=== PATIENT | male | born 1950 | race Caucasian/White ===

== ENCOUNTER → 2018-08-29 13:37 | Outpatient (CLI) | payer MEDICARE, SELFPAY ==
[2018-08-29 17:14] LABS: ALB/GLOB Ratio 1.1 RATIO (0.9-2.4); AST(SGOT) 35 U/L (15-37); Alanine Aminotransfer ALT/SGPT 41 U/L (16-61); Albumin, Serum 3.9 g/dL (3.2-5.0); Alkaline Phosphatase 64 U/L (45-117); Anion Gap 7 (5-15); BUN 25 mg/dL (7-18); BUN/Creat Ratio 22.9 RATIO (10-20); Calcium,Total 8.8 mg/dL (8.5-10.1); Chloride 109 mmol/L (98-107); Cholesterol 139 mg/dL (200); Creatinine, Serum 1.09 mg/dL (0.70-1.30); EST Glomerular Filtration Rate 72 mL/min (>60); Est Glom Filt Rate - Afr Amer 87 mL/min (>60); Globulin 3.5 g/dL (2.2-4.2); Glucose 70 mg/dL (74-106); High Density Lipoprotein 54 mg/dL; Protein, Total 7.4 g/dL (6.4-8.2); Sodium Level 144 mmol/L (136-145); Thyroid Stim Hormone (TSH) 2.57 uIU/mL (0.358-3.74); Triglycerides 48 mg/dL; Very Low Density Lipoprotein 10 mg/dL (5-40)
== END ==
PROVIDERS: Family Provider Family Medicine; PCP Family Medicine; Referring Provider Family Medicine; Visit Provider Family Medicine
DX: E11.9 Type 2 diabetes mellitus without complications (principal)
CPT/HCPCS: 36415; 80053; 80061; 84443

== ENCOUNTER 2019-04-15 05:53 | Day surgery (SDC) | payer OTHER, SELFPAY ==
[2019-02-02 12:46] VITALS: BMI 27.9
[2019-04-15] VITALS (7 sets, daily range): BP systolic 88–112; BP diastolic 51–83; PULSE 66–74; RESP 16–18; TEMP 36.8–37.1; O2SAT 94–99; BMI 27.4
[2019-04-15 06:51] LABS: Bedside Glucose 137 mg/dL (70-110)
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
--- NOTE | 2019-04-15 07:54 | OP.ENDO_ITS ---
04/15/2019 Jairon Caruso [address] [place] [address] Re : Colonoscopy procedure for Brent Kelly Dear Dr. Caruso This procedure was performed on Monday, April 15, 2019. My impressions and recommendations are as follows: Impressions : - One 4 mm polyp from 40 to 70 cm proximal to the anus. Unsuccessful polyp resection. - The examination was otherwise normal. - No specimens collected. Recommendations : - Discharge patient to home. - Resume previous diet. - Continue present medications. - Repeat colonoscopy (date not yet determined) for retreatment. - Return to my office in 1 week. My findings are described in the full procedure note, which is enclosed. If I can be of further assistance, please feel free to contact me at Doctor phone number(s): , Fax: [phone], Work: . Sincerely, MD Wilbert Sexton MD 04/15/2019 7:53:41 AM This report has been signed electronically.
--- NOTE | 2019-04-15 07:56 | RAD_ITS ---
STUDY: X-RAY - ABDOMEN/PELVIS REASON FOR EXAM: Male, 69 years old. Post colonoscopy. TECHNIQUE: AP supine and upright views of the abdomen and pelvis. COMPARISON: None. FINDINGS: Normal visualized lung bases. There is an unremarkable bowel gas pattern. There is no demonstrated free abdominal air. A tissue clip marker is seen in the left hemipelvis most likely within the rectosigmoid colon. Normal soft tissue structures. There are diffuse degenerative changes of the visualized lumbar spine. RAD/Abd Inc Decub and/or Erect IMPRESSION: Post colonoscopy. A tissue clip marker is seen in the left hemipelvis. Electronically Signed: Balaji Daigle, at 13:11 EDT , Service support ,
== END 2019-04-15 08:43 | disposition home or self-care (01) ==
LOC: EN 05:53 → AC 05:53
PROVIDERS: Family Provider Family Medicine; PCP Family Medicine; Referring Provider Family Medicine; Visit Provider Surgery
PROC: 0DJD8ZZ Inspection of Lower Intestinal Tract, Via Natural or Artificial Opening Endoscopic (ICD-10-PCS; CPT 45378; principal; 2019-04-15 06:55)
DX: Z12.11 Encounter for screening for malignant neoplasm of colon (principal); D12.6 Benign neoplasm of colon, unspecified; I10 Essential (primary) hypertension; K21.9 Gastro-esophageal reflux disease without esophagitis; K58.9 Irritable bowel syndrome, unspecified; G47.30 Sleep apnea, unspecified; G25.81 Restless legs syndrome; E11.9 Type 2 diabetes mellitus without complications; Z87.442 Personal history of urinary calculi
CPT/HCPCS: 45378; 74019; 82962; J7120; J1610

== ENCOUNTER → 2019-06-10 09:24 | Outpatient (CLI) | payer OTHER, SELFPAY ==
[2019-04-22 09:20] VITALS: BMI 27.4
[2019-06-10 10:16] LABS: ALB/GLOB Ratio 1.1 RATIO (0.9-2.4); AST(SGOT) 22 U/L (15-37); Alanine Aminotransfer ALT/SGPT 32 U/L (16-61); Albumin, Serum 3.8 g/dL (3.2-5.0); Alkaline Phosphatase 77 U/L (45-117); Anion Gap 6 (5-15); BUN 31 mg/dL (7-18); BUN/Creat Ratio 25.8 RATIO (10-20); Calcium,Total 8.8 mg/dL (8.5-10.1); Chloride 110 mmol/L (98-107); Cholesterol 214 mg/dL (200); EST Glomerular Filtration Rate 64 mL/min (>60); Est Glom Filt Rate - Afr Amer 78 mL/min (>60); Globulin 3.6 g/dL (2.2-4.2); Glucose 210 mg/dL (74-106); High Density Lipoprotein 50 mg/dL; Iron 104 ug/dL (65-175); PSA,Total - Annual Screen 0.37 ng/mL (0.00-4.00); Potassium 4.2 mmol/L (3.5-5.1); Protein, Total 7.4 g/dL (6.4-8.2); Sodium Level 144 mmol/L (136-145); Triglycerides 105 mg/dL; Very Low Density Lipoprotein 21 mg/dL (5-40)
[2019-06-10 10:20] LABS: Vitamin B12 284 pg/mL (211-911)
== END ==
PROVIDERS: Family Provider Family Medicine; PCP Family Medicine; Referring Provider Family Medicine; Visit Provider Family Medicine
DX: R53.83 Other fatigue (principal); E11.9 Type 2 diabetes mellitus without complications; E53.8 Deficiency of other specified B group vitamins; Z12.5 Encounter for screening for malignant neoplasm of prostate
CPT/HCPCS: 36415; 80053; 80061; 82306; 82607; 83540; 84153; 84403; G0103

== ENCOUNTER → 2019-12-31 14:54 | Outpatient (CLI) | payer OTHER, SELFPAY ==
[2019-12-31 14:47] VITALS: BMI 27.4
--- NOTE | 2019-12-31 14:55 | RAD_ITS ---
STUDY: X-RAY - LEFT HAND REASON FOR EXAM: Hand pain. TECHNIQUE: 3 view(s) of the hand. COMPARISON: None. FINDINGS: Normal radiocarpal articulation. Normal distal radioulnar joint. Normal visualized carpal bones. Normal carpal articulations There is moderate joint space narrowing of the carpometacarpal articulation of the thumb. Normal second through fifth carpometacarpal joints. Normal metacarpi. Normal metacarpophalangeal joint of the thumb. Normal interphalangeal joint of the thumb. Normal proximal and distal phalanges of the thumb. Normal metacarpophalangeal joints of the second through fifth fingers. There is mild space narrowing of the distal interphalangeal joints of the second and third fingers. Normal phalanges of the second through fifth fingers. The soft tissue structures are unremarkable. RAD/Hand Min 3 Views IMPRESSION: Arthrosis of the first carpometacarpal joint and second and third distal interphalangeal joints. Electronically Signed: Cirilo Veronica MD at 15:23 EST Tel , Service support ,
--- NOTE | 2019-12-31 14:55 | RAD_ITS ---
STUDY: X-RAY - LEFT ELBOW REASON FOR EXAM: Male, 69 years old. bilateral elbow pain TECHNIQUE: 3 view(s) of the elbow. COMPARISON: None. FINDINGS: Normal visualized humerus, radius and ulna. There is degenerative arthrosis of the radiocapitellar and ulnotrochlear articulations. The soft tissue structures are unremarkable. 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 Electronically Signed: Maldonado Richardson MD (Brooks) at 14:44 EST , Service support ,
--- NOTE | 2019-12-31 14:55 | RAD_ITS ---
STUDY: X-RAY - RIGHT HAND REASON FOR EXAM: Male, 69 years old. Hand pain TECHNIQUE: 3 view(s) of the hand. COMPARISON: None. FINDINGS: Normal radiocarpal articulation. Normal distal radioulnar joint. Normal visualized carpal bones. Normal carpal articulations Normal carpometacarpal articulation of the thumb. Normal second through fifth carpometacarpal joints. Normal metacarpi. Normal metacarpophalangeal joint of the thumb. Normal interphalangeal joint of the thumb. Normal proximal and distal phalanges of the thumb. Normal metacarpophalangeal joints of the second through fifth fingers. Normal proximal and distal interphalangeal joints of the second through fifth fingers. Normal phalanges of the second through fifth fingers. The soft tissue structures are unremarkable. RAD/Hand Min 3 Views IMPRESSION: Normal x-ray examination of the hand. Electronically Signed: Balaji Daigle, at 15:16 EST , Service support ,
--- NOTE | 2019-12-31 14:55 | RAD_ITS ---
STUDY: X-RAY - RIGHT ELBOW REASON FOR EXAM: Male, 69 years old. Bilateral elbow pain TECHNIQUE: 3 view(s) of the elbow. COMPARISON: Comparison is made with prior examination dated May 31, 2010. FINDINGS: Normal visualized humerus, radius and ulna. There is degenerative arthrosis of the radiocapitellar and ulnotrochlear articulations. The soft tissue structures are unremarkable. RAD/Elbow min 3 Views IMPRESSION: Arthrosis of the elbow, as described above. Electronically Signed: Balaji Daigle, at 15:16 EST , Service support ,
== END ==
PROVIDERS: PCP Family Medicine; Referring Provider Orthopaedic Surgery; Visit Provider Orthopaedic Surgery
DX: M79.641 Pain in right hand (principal); M79.642 Pain in left hand; M25.521 Pain in right elbow; M25.522 Pain in left elbow
CPT/HCPCS: 73080; 73130

== ENCOUNTER 2020-02-01 17:00 | Outpatient (RCR) | payer OTHER, SELFPAY ==
[2019-12-31 14:47] VITALS: BMI 27.4
--- NOTE | 2020-01-12 14:19 | HP.OTEVAL ---
Patient's Visit Information RICKI MOREL is a 69 year old M, referred to Occupational Therapy by Dr. Lleo Cody DO, with a diagnosis of B elbow tendonitis, B MF trigger finger, Diabetic neuropathy. Date of Evaluation: 01/11/20 Occupational Therapist: GWYN Marquez/Nenita, CHT - Subjective Subjective: This 69 year old male was seen for OT eval with dx of bilateral elbow tendonitis, bilateral MF trigger fingers and diabetic neropathy. pt states right elbow pain started about a year ago- states he has used tennise elbow brace in past but didn't feel it was helpful. pt states pain is limiting his work and daily tasks. pt states he developed tingling/numbness in bilateral hands- pt states tingling is constant. pt would like to know what he can do to decrease pain and increase use of his UE for ADls and IADLS. 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 Goal:: pt will demo the ability to form a composite fist with no signs of B MF triggering by d/c - Rehabilitation General Assessment: pt demo with positive symptoms of bilateral trigger fingers, and elbow pain- this limits pts with ADLS and IADLs. Pt would benefit from skilled OT services 2x week for 4 weeks to decrease pain, ed. on work ergo. joint protection, eccentric ex. to return pt to PLOF. Today pt given information on medial and lateral tendonitis, trigger finger and joint protection brandee. therapist will also look at work ergo. pt agree to POC. Rehabilitation Potential: Good - Anticipated Interventions Anticipated Interventions: A/AAROM/PROM, Strengthening, Triggerpoint Release, Modalities, Orthoses, Joint Protection/Energy Conservation, Ergonomic Education, Education re Diagnosis - Visit Plan Frequency: 1-2x /Week Duration: 4 Weeks TEXT: Thank you for the opportunity to evaluate your patient. For Medicare and Medicare HMO plans, please review the plan of care and approve it. It will need to be FAXED BACK to us at [phone] for Medicare purposes. Please let me know if there are questions or concerns regarding this plan of care. Physician Signature: Date:
--- NOTE | 2020-07-13 14:14 | HP.OTDCSUM_ITS ---
It has been my pleasure to treat RICKI MOREL under orders from Dr. Lelo Cody, , for the diagnosis of B elbow tendonitis, B MF trigger finger, Diabetic neuropathy for a total of 6 visit(s). Please see the following information for a summary of their discharge status. 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 Goal:: pt will demo the ability to form a composite fist with no signs of B MF triggering by d/c Plan: pt to rosalina Cardona let her know he was seen 6 visits with no change in trigger fingers - elbows better- may need cortisone shot If there are questions or concerns regarding this patient's occupational therapy, please fell free to call me at [phone]. Thank you for the referral of this patient. Sincerely, Renee Alejo, OTR/L, CHT
--- NOTE | 2020-07-13 14:17 | HP.OT.NRP ---
RICKI MOREL was seen in my office for initial evaluation on 01/11/20. The following Plan of Care was established for this patient: Plan: pt to rosalina Cardona let her know he was seen 6 visits with no change in trigger fingers - elbows better- may need cortisone shot Anticipated Interventions: A/AAROM/PROM, Strengthening, Triggerpoint Release, Modalities, Orthoses, Joint Protection/Energy Conservation, Ergonomic Education, Education re Diagnosis This patient was last seen in our office 02/01/20. Pertinent comments regarding their Occupational therapy will appear below: PT was seen for 6 OT visits with little improvement- Pt was advised to return to for further assessment- pt has not returnd as this time and due to time lapse in care pt d/c. At this point I will be discontinuing this patient from occupational therapy. I would be happy to see this patient again in the future if found appropriate by the physician. Thank you! Renee Alejo, OTR/L, CHT
== END 2020-02-01 19:00 | disposition home or self-care (01) ==
LOC: OT 17:00
PROVIDERS: PCP Family Medicine; Referring Provider Orthopaedic Surgery; Visit Provider Orthopaedic Surgery
DX: M77.9 Enthesopathy, unspecified (principal); M65.332 Trigger finger, left middle finger; M65.331 Trigger finger, right middle finger; E11.40 Type 2 diabetes mellitus with diabetic neuropathy, unspecified
CPT/HCPCS: 97035; 97110; 97140; 97166; 97760

== ENCOUNTER → 2020-04-19 14:33 | Outpatient (CLI) | payer OTHER, SELFPAY ==
[2019-12-31 14:47] VITALS: BMI 27.4
--- NOTE | 2020-04-19 14:34 | RAD_ITS ---
STUDY: X-RAY - CERVICAL SPINE REASON FOR EXAM: Male, 70 years old. NECK PAIN TECHNIQUE: 4 view(s) of the cervical spine were obtained including flexion-extension views. COMPARISON: None FINDINGS: Normal anterior atlantoaxial articulation. Normal odontoid process. There is straightening of the normal cervical lordosis. There is multi-level endplate spondylosis. There is multi-level degenerative disc disease with multilevel disc space narrowing. Facet joint osteoarthritis. No abnormal movement occurs during flexion and extension maneuvers. Focal calcification of the posterior nuchal ligament. RAD/Cerv Spine 4 or 5 Views IMPRESSION: Loss of the normal cervical lordosis. Multilevel spondylosis and disc space narrowing. Electronically Signed: Balaji Daigle, at 8:43 EDT , Service support ,
== END ==
PROVIDERS: PCP Family Medicine; Referring Provider Orthopaedic Surgery; Visit Provider Orthopaedic Surgery
DX: M99.01 Segmental and somatic dysfunction of cervical region (principal); M54.2 Cervicalgia
CPT/HCPCS: 72050

== ENCOUNTER 2020-05-17 08:08 | Emergency (ER) | payer OTHER, SELFPAY ==
[2020-04-19 14:54] VITALS: BMI 27.4
[2020-05-17 08:09] VITALS: BP 134/94; PULSE 80; RESP 16; TEMP 36.3; O2SAT 98; BMI 28.7
--- NOTE | 2020-05-17 08:46 | RAD_ITS ---
STUDY: X-RAY - RIGHT KNEE REASON FOR EXAM: Male, 70 years old. Knee pain X1 month, worsens with motion. TECHNIQUE: 4 view(s) of the knee. COMPARISON: None. FINDINGS: Normal visualized distal femur. Normal visualized proximal tibia and fibula. Normal proximal tibiofibular articulation. There is severe degenerative arthrosis of the medial femorotibial compartment with severe joint space narrowing. Normal lateral femorotibial compartment. There is moderate degenerative arthrosis of the patellofemoral articulation. Small joint effusion. RAD/Knee 4 or More Views IMPRESSION: Degenerative arthrosis. Small joint effusion Electronically Signed: Balaji Daigle, at 9:20 EDT , Service support ,
--- NOTE | 2020-05-17 08:51 | ED.DCSUM_ITS ---
History of Present Illness Chief Complaint: Lower Extremity Injury Informant: Patient Onset: Month(s) - 1 Narrative: On and off symptoms right knee for the past month. States felt a lump behind right side of knee. Denies trauma. Yesterday increasing pain and felt uns table. Reports he felt a snap. Able to ambulate. Pain now on top of the knee. No paresthesias. Left knee total arthroscopic by Dr. Mcrae in the past. States he saw his PCP a week ago and evaluated felt he was stable at that time however pain is new from yesterday. Past Medical History - Allergies and Home Meds Allergies/Adverse Reactions: Allergies No Known Allergies Allergy (Verified 05/17/20 08:11) Primary Care Physician: Jairon Caruso MD [Primary Care Provider] - Past Medical History: - - Diabetes, hypertension Smoking Status: Former smoker Review of Systems General: Denies: Chills, Fever, Sweats Eyes: Denies: Visual changes - bilaterally, Diplopia ENT: Denies: Rhinorrhea, Sore throat Cardiovascular: Denies: Chest pain, Palpitations Respiratory: Denies: Dyspnea, Cough, Dyspnea on exertion Gastrointestinal: Denies: Abdominal pain, Nausea, Vomiting, Diarrhea, Melena, Hematochezia Genitourinary: Denies: Dysuria, Hematuria, Frequency Musculoskeletal: Reports: Arthralgias. Denies: Back pain, Extremity Pain Skin: Denies: Rash, Wounds Neurological: Denies: Headache, Weakness, Numbness Physical Exam Vital Signs/Narrative: Vital Signs Temp Pulse Resp BP Pulse Ox 05/17/20 08:09 97.3 F L 80 16 134/94 H 98 General: Well nourished, Well developed, No Acute Distress Head: Normocephalic, Atraumatic Eyes: Perrl, EOMI ENT: Moist mucous membranes, No rhinorrhea Neck: Supple, Nontender Cardiovascular: Regular rate, Regular rhythm, No murmurs Respiratory: No distress, CTA bilaterally, Chest nontender Abdomen: Soft, Nontender, Nondistended, Normal bowel sounds Back: Nontender, Normal Inspection Extremities: No edema, - - Right lower extremity: Negative logroll. Knee extensor mechanism intact. Minimal tenderness suprapatellar. Negative varus and valgus. Negative Nirmal's. No calf or medial thigh tenderness. Skin intact. Neurovascular intact. Skin: Normal color, No rash Neurological: Alert, Oriented x3, Cranial nerves II-XII grossly intact, Normal Strength, Normal Sensation Psychological: Normal affect, Normal Mood Diagnostic/Tx/Re-eval 4 view right knee reviewed by myself shows no fracture or dislocation. Significant degenerative changes especially at the medial compartment of the knee. - Medical Decision Making Patient declined any medications. Discussed with patient with his reported hi story of feeling a snap, will be no indication for emergent MRI of the knee today. He does see a specialist. He did want an x-ray for evaluation of the bones which was obtained noting significant arthritis in the medial compartment. Reported there is plan for total knee for this side in the past with his surgeon. He will wear knee brace, he will use Tylenol or Motrin as needed. He will follow-up as an outpatient. All questions were answered. ED Disposition - Plan for ED Patient: Disposition: Home or Assisted Living Diagnosis: Internal derangement of right knee Instructions: ED Knee Pain UKO, Osteoarthritis: Common Sites Referrals: Jairon Caruso MD [Primary Care Provider] - Rc Mcrae DO [STAFF PHYSICIAN] - 5-7 Days
== END 2020-05-17 09:34 | disposition home or self-care (01) ==
PROVIDERS: Emergency Provider Emergency Medicine; PCP Family Medicine
DX: M23.91 Unspecified internal derangement of right knee (principal); E11.9 Type 2 diabetes mellitus without complications; I10 Essential (primary) hypertension; Z87.891 Personal history of nicotine dependence
CPT/HCPCS: 73564; 99282

== ENCOUNTER → 2020-05-24 07:43 | Outpatient (CLI) | payer OTHER, SELFPAY ==
[2020-05-17 08:09] VITALS: BMI 28.7
--- NOTE | 2020-05-24 07:48 | CT_ITS ---
STUDY: CT SCAN LOWER EXTREMITY RIGHT REASON FOR EXAM: Male, 70 years old. RIGHT KNEE PAIN- JB protocol RADIATION DOSAGE (If Supplied By Facility): CTDIvol = ( 17.91 ) mGy, DLP = ( 1062.41 ) mGycm. Individualized dose optimization techniques were used for this CT.? TECHNIQUE: Multiple axial tomographic images of the right lower extremity were obtained. Coronal and sagittal reconstruction was obtained as well. COMPARISON: Comparison is made with prior radiograph of the right knee dated May 17, 2020. FINDINGS: There is evidence of an acetabular spur. Mild degree of joint space narrowing along the inferior medial aspect of the right hip joint. Marked degree of the joint space narrowing and degenerative changes involving the medial compartment of the knee joint. There are tiny subchondral geodes in the medial tibial plateau. Focal degenerative spurring is seen along the anterior aspect of the medial femoral condyle. There is evidence of a small joint effusion. No significant narrowing of the patellofemoral joint is seen. Imaging of the ankle shows evidence of prior avulsion fracture of the medial malleolus. The ankle mortise is intact. CT/Extremity Lower without Contra IMPRESSION: Marked degree of joint space narrowing and arthritis of the medial compartment of the knee joint as described. Small joint effusion. Electronically Signed: Balaji Daigle, at 13:18 EDT , Service support ,
[2020-05-24 09:00] LABS: Erythrocyte Sedimentation Rate 67 mm/hr (0-20)
[2020-05-24 09:02] LABS: Absolute Lymphocyte Count 2.24 X10^3/uL (0.83-4.51); Absolute Neutrophil Count 6.8 X10^3/uL (2.0-7.7); Basophil# 0.05 X10^3/uL; Basophil% 0.5 % (0-1); Eosinophil# 0.19 X10^3/uL; Eosinophils% 1.8 % (0-5); Hematocrit 39.9 % (40-54); Hemoglobin 12.9 g/dL (13.0-16.5); Lymphocyte # 2.24 X10^3/ul (4.0); Lymphocyte % 21.7 % (19-41); Mean Corp Hgb Conc 32.3 g/dL (32-36); Mean Corpuscular Hgb 28.7 pg (27.0-32.0); Mean Corpuscular Volume 88.9 fL (80-94); Mean Platelet Vol. 9.5 fl (6.2-12.0); Monocyte# 0.97 X10^3/uL; Monocyte% 9.4 % (0-10); NRBC Flagged by Analyzer 0 % (0-5); Neutrophil # 6.78 X10^3/uL (2.7-7.7); Neutrophil % 65.5 % (47-70); Platelet Count 356 K/mm3 (150-450); RBC Distribution Width CV 13.5 % (11.6-14.6); RBC Distribution Width SD 44.1 fl (35.1-43.9); Red Blood Count 4.49 M/mm3 (4.6-6.2); White Blood Count 10.3 K/mm3 (4.4-11.0)
[2020-05-24 09:07] LABS: Vitamin B12 597 pg/mL (211-911); Vitamin D,25 Hydroxy 42.8 ng/mL
[2020-05-24 09:13] LABS: Cholesterol 160 mg/dL (200); High Density Lipoprotein 38 mg/dL; Thyroid Stim Hormone (TSH) 3.45 uIU/mL (0.358-3.74); Triglycerides 140 mg/dL; Very Low Density Lipoprotein 28 mg/dL (5-40)
== END ==
PROVIDERS: PCP Family Medicine; Referring Provider Orthopaedic Surgery; Visit Provider Orthopaedic Surgery
DX: M17.11 Unilateral primary osteoarthritis, right knee (principal); E11.9 Type 2 diabetes mellitus without complications; Z12.5 Encounter for screening for malignant neoplasm of prostate; E53.8 Deficiency of other specified B group vitamins; E55.9 Vitamin D deficiency, unspecified
CPT/HCPCS: 36415; 73700; 80061; 82306; 82607; 84443; 85025; 85652; 86140

== ENCOUNTER → 2020-06-13 08:00 | Outpatient (CLI) | payer OTHER, SELFPAY ==
[2020-05-17 08:09] VITALS: BMI 28.7
--- NOTE | 2020-06-17 07:14 | EKG12_ITS ---
Test Reason : PRE-OP Blood Pressure : / mmHG Vent. Rate : 064 BPM Atrial Rate : 064 BPM P-R Int : 160 ms QRS Dur : 092 ms QT Int : 404 ms P-R-T Axes : 069 079 070 degrees QTc Int : 416 ms Normal sinus rhythm with sinus arrhythmia RSR' in V1; Non Diagnostic Confirmed by KEVIN WHITESIDE, NANCY ([id number]), commissioning editor JANELLE PADGETT ([id number]) on 06/20/2020 9:05:10 AM Referred By: Rc Mcrae Confirmed By:NANCY BROWN MD
[2020-06-17 07:19] LABS: Absolute Lymphocyte Count 3.81 X10^3/uL (0.83-4.51); Basophil# 0.06 X10^3/uL; Basophil% 0.6 % (0-1); Hematocrit 42.6 % (40-54); Hemoglobin 13.5 g/dL (13.0-16.5); Lymphocyte # 3.81 X10^3/ul (4.0); Lymphocyte % 37.4 % (19-41); Mean Corp Hgb Conc 31.7 g/dL (32-36); Mean Corpuscular Hgb 28.9 pg (27.0-32.0); Mean Corpuscular Volume 91.2 fL (80-94); Mean Platelet Vol. 9.6 fl (6.2-12.0); Monocyte# 1.04 X10^3/uL; Monocyte% 10.2 % (0-10); NRBC Flagged by Analyzer 0 % (0-5); Neutrophil # 4.96 X10^3/uL (2.7-7.7); Neutrophil % 48.7 % (47-70); Platelet Count 334 K/mm3 (150-450); RBC Distribution Width CV 14.1 % (11.6-14.6); RBC Distribution Width SD 46.9 fl (35.1-43.9); Red Blood Count 4.67 M/mm3 (4.6-6.2); White Blood Count 10.2 K/mm3 (4.4-11.0)
[2020-06-17 07:42] LABS: Anion Gap 8 (5-15); BUN 58 mg/dL (7-18); BUN/Creat Ratio 25.6 RATIO (10-20); Calcium,Total 9.2 mg/dL (8.5-10.1); Chloride 106 mmol/L (98-107); Creatinine, Serum 2.27 mg/dL (0.70-1.30); EST Glomerular Filtration Rate 31 mL/min (>60); Est Glom Filt Rate - Afr Amer 37 mL/min (>60); Glucose 111 mg/dL (74-106); Potassium 4.6 mmol/L (3.5-5.1); Sodium Level 138 mmol/L (136-145)
[2020-06-17 08:13] LABS: Hemoglobin A1c 9.6 % (3.8-5.6)
[2020-06-20 22:59] LABS: Magnesium 2.4 mg/dL (1.6-2.6)
== END ==
PROVIDERS: Anesthesiology; PCP Family Medicine; Referring Provider Orthopaedic Surgery; Visit Provider Orthopaedic Surgery
DX: Z01.810 Encounter for preprocedural cardiovascular examination (principal)
CPT/HCPCS: 36415; 80048; 83036; 83735; 85025; 87077; 87081; 87635; 93005; 94799; U0003

== ENCOUNTER → 2020-08-03 14:33 | Outpatient (CLI) | payer OTHER, SELFPAY ==
[2020-08-03 18:30] LABS: Anion Gap 4 (5-15); BUN 53 mg/dL (7-18); BUN/Creat Ratio 28.6 RATIO (10-20); Calcium,Total 8.9 mg/dL (8.5-10.1); Chloride 110 mmol/L (98-107); Creatinine, Serum 1.85 mg/dL (0.70-1.30); EST Glomerular Filtration Rate 39 mL/min (>60); Est Glom Filt Rate - Afr Amer 47 mL/min (>60); Glucose 145 mg/dL (74-106); Potassium 5.5 mmol/L (3.5-5.1); Sodium Level 141 mmol/L (136-145)
== END ==
PROVIDERS: PCP Family Medicine; Referring Provider Family Medicine; Visit Provider Family Medicine
DX: E11.9 Type 2 diabetes mellitus without complications (principal)
CPT/HCPCS: 36415; 80048

== ENCOUNTER → 2020-08-12 15:26 | Outpatient (CLI) | payer OTHER, SELFPAY ==
[2020-08-12 17:59] LABS: Anion Gap 4 (5-15); BUN 40 mg/dL (7-18); BUN/Creat Ratio 26.5 RATIO (10-20); Calcium,Total 9.2 mg/dL (8.5-10.1); Chloride 113 mmol/L (98-107); Creatinine, Serum 1.51 mg/dL (0.70-1.30); EST Glomerular Filtration Rate 49 mL/min (>60); Est Glom Filt Rate - Afr Amer 59 mL/min (>60); Glucose 101 mg/dL (74-106); Potassium 5.1 mmol/L (3.5-5.1); Sodium Level 141 mmol/L (136-145)
== END ==
PROVIDERS: PCP Family Medicine; Referring Provider Family Medicine; Visit Provider Family Medicine
DX: E11.9 Type 2 diabetes mellitus without complications (principal)
CPT/HCPCS: 36415; 80048

== ENCOUNTER → 2020-11-30 10:34 | Outpatient (CLI) | payer OTHER, SELFPAY ==
[2020-11-30 12:09] LABS: Anion Gap 2 (5-15); BUN 34 mg/dL (7-18); BUN/Creat Ratio 23.1 RATIO (10-20); Calcium,Total 9.1 mg/dL (8.5-10.1); Chloride 111 mmol/L (98-107); Creatinine, Serum 1.47 mg/dL (0.70-1.30); EST Glomerular Filtration Rate 51 mL/min (>60); Est Glom Filt Rate - Afr Amer 61 mL/min (>60); Glucose 172 mg/dL (74-106); Potassium 4.4 mmol/L (3.5-5.1); Sodium Level 142 mmol/L (136-145)
== END ==
PROVIDERS: PCP Family Medicine; Referring Provider Family Medicine; Visit Provider Family Medicine
DX: E11.9 Type 2 diabetes mellitus without complications (principal)
CPT/HCPCS: 36415; 80048; 83036

== ENCOUNTER → 2021-05-10 08:41 | Outpatient (CLI) | payer OTHER, SELFPAY ==
--- NOTE | 2021-05-10 08:57 | RAD_ITS ---
STUDY: X-RAY - LEFT HAND REASON FOR EXAM: Male, 71 years old. Hand pain. TECHNIQUE: 3 view(s) of the hand. COMPARISON: None. FINDINGS: Generalized osteopenia. Moderate arthrosis of the radiocarpal articulation. Moderate arthrosis of the radiocarpal row. Moderate to severe arthrosis of the first CMC joint. Cystic change in multiple carpal bones. The soft tissue structures are unremarkable. RAD/Hand Min 3 Views IMPRESSION: Osteopenia with osteoarthritic changes as described. Cystic change and multiple carpal bones. No acute abnormality, juxta-articular or intra-articular erosive changes or periostitis. Electronically Signed: González Joel MD at 10:06 EDT , Service support ,
--- NOTE | 2021-05-10 09:02 | RAD_ITS ---
STUDY: X-RAY - RIGHT HAND REASON FOR EXAM: Male, 71 years old. Hand pain. TECHNIQUE: 3 view(s) of the hand. COMPARISON: None. FINDINGS: Generalized osteopenia. Moderate arthrosis of the radiocarpal articulation. Moderate arthrosis of the radiocarpal row. Moderate to severe arthrosis of the first CMC joint. Cystic change in multiple carpal bones, most marked in the hamate. The soft tissue structures are unremarkable. RAD/Hand Min 3 Views IMPRESSION: Osteopenia with osteoarthritic changes as described. Cystic change and multiple carpal bones, most marked in the hamate. No acute abnormality, juxta-articular or intra-articular erosive changes or periostitis. Electronically Signed: González Joel MD at 10:07 EDT , Service support ,
== END ==
PROVIDERS: PCP Family Medicine; Referring Provider Family Medicine; Visit Provider Family Medicine
DX: M79.643 Pain in unspecified hand (principal)
CPT/HCPCS: 73130

== ENCOUNTER 2021-07-06 10:00 | Outpatient (RCR) | payer OTHER, SELFPAY | END 2021-07-11 23:59 | LOC: DC 10:00 | PROVIDERS: PCP Family Medicine; Visit Provider Family Medicine | DX: E11.9 Type 2 diabetes mellitus without complications (principal) | CPT/HCPCS: 97802; G0108 ==

== ENCOUNTER → 2021-07-11 14:39 | Outpatient (CLI) | payer OTHER, SELFPAY ==
--- NOTE | 2021-07-11 14:41 | CT_ITS ---
CT Lower Extremity W/O Contrast Injection INDICATION:71 years old male presenting with right KNEE PAIN. TECHNIQUE: Sequential axial 2.5 mm collimated images are obtained through the left hip and ankle. 0.625 mm images were obtained through the left knee. No intravenous contrast was administered. Images were reformatted in sagittal and coronal planes and forwarded for preoperative planning. COMPARISON: 05/24/2020. FINDINGS: Contiguous axial images of the left lower extremity was obtained in different collimations for preoperative planning, images demonstrate degenerative changes, no evidence of cortical irregularities or lucencies to suggest fractures, no evidence of lytic or sclerotic bone lesions are seen. No evidence of left hip dislocation, narrowing of the left hip joint space is seen. Degenerative bone changes visualized with subtle subcortical cyst formation seen, increased density along the articular surface of the acetabulum, hypertrophic bone formation visualized along the inferior lateral acetabulum. No evidence of left hip effusion is seen. Severe narrowing of the medial joint space, moderate to severe narrowing of the lateral joint space and mild to moderate narrowing of the patellofemoral joint space. Increased density visualized along the articular surfaces, articular sclerosis with subchondral lucency/cyst formation visualized. Hypertrophic bone changes with osteophyte formation visualized. No evidence of suprapatellar effusion is seen. The ankle mortise is maintained, the talar dome demonstrates no evidence of fracture cortical irregularity, subtle subchondral lucency/cysts visualized, degenerative changes visualized with no evidence of cortical irregularity or lucency to suggest a fracture. Well-corticated bones are visualized along the inferior aspect of the medial malleolus. No evidence of dislocation is seen. Inferior calcaneal spur and tendon enthesopathy visualized. No evidence of ankle joint effusion. IMPRESSION: Degenerative changes visualized, no acute osseous abnormality is seen. Electronically Signed: Sly Hu MD at 16:18 EDT Tel , Service support , CT/Extremity Lower without Contra
== END ==
PROVIDERS: PCP Family Medicine; Referring Provider Orthopaedic Surgery; Visit Provider Orthopaedic Surgery
DX: M17.11 Unilateral primary osteoarthritis, right knee (principal)
CPT/HCPCS: 73700

== ENCOUNTER 2021-07-20 13:04 | Outpatient (RCR) | payer OTHER, SELFPAY ==
[2021-07-12 00:16] VITALS: BMI 28.7
== END 2021-08-10 23:59 ==
LOC: DC 13:04
PROVIDERS: PCP Family Medicine; Visit Provider Family Medicine
DX: E11.9 Type 2 diabetes mellitus without complications (principal)
CPT/HCPCS: 97803

== ENCOUNTER 2021-07-31 05:23 | Day surgery (SDC) | payer OTHER, SELFPAY ==
--- NOTE | 2021-07-18 11:06 | EKG12_ITS ---
Test Reason : PREOP Blood Pressure : / mmHG Vent. Rate : 058 BPM Atrial Rate : 058 BPM P-R Int : 164 ms QRS Dur : 092 ms QT Int : 410 ms P-R-T Axes : 027 064 038 degrees QTc Int : 402 ms Sinus bradycardia with marked sinus arrhythmia Increased R/S ratio in V1, consider early transition or posterior infarct or normal variant or lead m isplacement Abnormal ECG Confirmed by KEVIN WHITESIDE, NANCY ([id number]), food editor JANELLE PADGETT ([id number]) on 07/19/2021 9:23:42 AM Referred By: Rc Mcrae Confirmed By:NANCY BROWN MD
[2021-07-18 12:20] LABS: Hematocrit 34.1 % (40-54); Hemoglobin 10.9 g/dL (13.0-16.5); Mean Corpuscular Hgb 29.5 pg (27.0-32.0); Mean Corpuscular Volume 92.4 fL (80-94); Mean Platelet Vol. 10.1 fl (6.2-12.0); Platelet Count 258 K/mm3 (150-450); RBC Distribution Width CV 13.9 % (11.6-14.6); RBC Distribution Width SD 47.2 fl (35.1-43.9); Red Blood Count 3.69 M/mm3 (4.6-6.2); White Blood Count 7.3 K/mm3 (4.4-11.0)
[2021-07-18 12:29] LABS: International Normalized Ratio 1.1; Partial Thromboplast Time 33.5 Seconds (24.1-36.2); Prothrombin Time (Protime)PT. 13.4 SECONDS (11.7-14.9)
[2021-07-18 12:41] LABS: BUN 39 mg/dL (7-18); EST Glomerular Filtration Rate 58 mL/min (>60); Glucose 146 mg/dL (74-106)
[2021-07-18 12:42] LABS: Anion Gap 1 (5-15); Calcium,Total 8.6 mg/dL (8.5-10.1); Chloride 114 mmol/L (98-107); Est Glom Filt Rate - Afr Amer 70 mL/min (>60); Potassium 4.7 mmol/L (3.5-5.1); Sodium Level 143 mmol/L (136-145)
[2021-07-18 12:48] LABS: AST(SGOT) 24 U/L (15-37); Alanine Aminotransfer ALT/SGPT 32 U/L (16-61); Albumin, Serum 3.7 g/dL (3.2-5.0); Alkaline Phosphatase 78 U/L (45-117); Bilirubin, Direct 0.06 mg/dL (0.00-0.30); Globulin 3.6 g/dL (2.2-4.2); Magnesium 2.2 mg/dL (1.6-2.6); Protein, Total 7.3 g/dL (6.4-8.2)
[2021-07-18 12:56] LABS: Hemoglobin A1c 7.5 % (3.8-5.6)
[2021-07-31] VITALS (10 sets, daily range): BP systolic 116–150; BP diastolic 49–74; PULSE 57–67; RESP 16–17; TEMP 35.9–36.8; O2SAT 99–100; BMI 28.3
--- NOTE | 2021-07-31 | KNEE_PTH ---
PATIENT: RICKI MOREL LOC: [facility] U#:[id number] AGE/SX: 71/M ROOM: RE07/31/[address]: Dr. Rc Mcrae DO : 1950 BED: DIS: 07/31/2021 SPEC #: [id number] RECD: 07/31/21 13:02 STATUS: PAIGE ANIA #: [id number] LIDIA: 07/31/21 00:[address]: Rc Mcrae DEPT: SURGICAL PATHOLOGY RECD BY: Aashish De La Cruz ENTERED: 07/31/21 13:02 SP TYPE: TOTAL KNEE OTHR DR: Dr. Salvatore Caruso MD Tissues: Knee, NOS Procedures: Decalcification bone/plaque Surgery Specimen Level IV HEADER OPERATION: ERAS, total knee replacement robotic arm assist PRE-OP DIAGNOSIS: Primary osteoarthritis right knee TISSUE SUBMITTED: Bone and soft tissue right knee MICROSCOPIC DIAGNOSIS Bone and soft tissue of right knee, total knee resection: Severe degenerative joint disease. Mild synovial hyperplasia. AM:adenike 08/03/2021 MICROSCOPIC DESCRIPTION Slides are reviewed. GROSS DESCRIPTION Received is one container designated bone and soft tissue right knee. The specimen consists of multiple fragments of liu-yellow bone measuring in aggregate 17 x 13 x 2 cm. Also in the specimen container are multiple fragments of yellow-white soft tissue measuring in aggregate 11 x 8 x 2 cm. A number of bony fragments contain articular surfaces consistent with tibial plateau and femoral condyle and displaying prominent osteophyte formation, eburnation, and bone erosion. Game Farm Helper sections are submitted in two cassettes as follows: 1 - soft tissue, 2 - bone after decalcification. / AM:adenike 07/31/21 TC:5 [facility]: [id number], [id number]
[2021-07-31 06:11] LABS: Bedside Glucose 209 mg/dL (70-110)
[2021-07-31] MEDS: Lactated Ringers 1,000 ML 125 ML IV (06:27)
[2021-07-31] MEDS: Gabapentin 600 MG Tablet PO (06:30)
[2021-07-31] MEDS: Acetaminophen 500 MG Tablet 1000 MG PO ×2 (06:30→14:27)
--- NOTE | 2021-07-31 07:39 | RAD_ITS ---
STUDY: X-RAY - RIGHT KNEE REASON FOR EXAM: Postoperative evaluation of right total knee arthroplasty. TECHNIQUE: 2 view(s) of the knee. COMPARISON: Radiographs 05/17/2020. FINDINGS: There is a right total knee arthroplasty without evidence of complication. There is postoperative gas and overlying skin kevan. RAD/Knee 1 or 2 Views IMPRESSION: Uncomplicated right total knee arthroplasty. Electronically Signed: Cirilo Veronica MD at 10:50 EDT Tel , Service support ,
[2021-07-31] MEDS: Cefazolin 2 GM in 0.9% Normal Saline 100 ML IV (07:40)
--- NOTE | 2021-07-31 09:21 | OP.PCM_ITS ---
Report of Operation Date of Procedure: 07/31/21 Pre-Operative Diagnosis: OA right knee Post-Operative Diagnosis: same Surgery/Procedure Performed:: Right TKR Description of Surgical Findings:: Report of Operation Date of Procedure: Preoperative Diagnosis: right knee primary osteoarthritis Postoperative Diagnosis: [right ] knee primary osteoarthritis Operation: Robotic Assisted Knee Total Arthroplasty, [right ] knee Surgeon: Dr Rc Mcrae DO Statistical Machine Mechanic: Catrina Lopez PA-C Anesthesia: spinal Anesthesiologist: Tyshawn Figueroa M.D. Findings: Stable knee with good patella tracking Specimen(s): Bony cuts Complications: No intraoperative complications Estimated Blood Loss: 25 cc IV Fluids: 1000 cc crystalloid Implants Used: 1. Pepperell Triathlon size 5 press-fit CR femur 2. Conchis Triathlon size 5 tibia 3. 35 mm patella 4. 9 mm CS polyethylene Brief History Operative Indications: [ (71 y/o male) ] with history of [right ] knee osteoarthrosis with radiographic findings with loss of joint space, osteophyte formation and subchondral sclerosis. Failed conservative measures as mentioned in the H&P. Discussion of total knee arthroplasty as well as risk and benefits were discussed with the patient including but not limited to blood loss, DVTs, PEs, neurovascular damage, general risk of anesthesia including loss of life, and stiffness or instability were also discussed with the patient. Patient demonstrated understanding and was able to sign informed consent. Procedure: On the date of procedure, patient's [ right ] lower extremity was marked in the preoperative area. The patient was then taken back to the operating room where that patient was placed on the table in the supine position. All bony prominences were identified and well-padded. Anesthesia assumed control of the C-spine and airway throughout the remainder of the procedure. A tourniquet was placed on the [right ] upper thigh and the leg was prepped in a sterile fashion. The surgeon then scrubbed at this time. Upon reentering the room, the [ right ] lower extremity was draped in a standard orthopedic fashion. A timeout was then called and everyone agreed upon the side, the site, the procedure to be performed, patient's identity and antibiotics given. Esmarch bandage was used to exsanguinate the extremity and the tourniquet was placed up to 250 mmHg with the knee in flexion. A midline skin incision was made and a sharp dissection was taken down through skin, subcutaneous tissue and fat. The standard medial parapatellar incision was made and the patella was subluxed laterally. An appropriate deep MCL release was done and the fat pad was resected. Our attention was then directed to the patella. The patella was everted and a flat resection was made. The knee was then flexed up and 2 femoral pins were placed inside the incision and 2 tibial pins were placed outside the incision in the medial tibia bicortically. Once this was completed, the 2 checkpoints in the femur and tibia were placed. Knee was then flexed up and the bony landmarks were registered. Once the was completed, the knee taken through range of motion and manually stressed allowing us to plan for an appropriate tibial cut. The robotic arm was brought into the field sterilely and checkpoint and saw were registered. Based on the patient's deformity, the tibial cut was made in [2 degrees varus ]. At this time, the tensioner was then placed in the joint and ligament tension was checked at 90 degrees and full extension. Based on the patient's ligamentous tension, appropriate adjustments were made to the operative plan and ligament releases were done. Once we were happy with our operative plan with balanced flexion and extension gaps, our attention was directed to the femur. The robot was brought into the field sterilely and registered. Posterior condylar cuts, anterior chamfer cuts and anterior cuts were appropriately made for a [size 5 ] femur. When these were completed, the saws were switched out in the distal femoral and posterior chamfer cuts were made. Protecting the soft tissue throughout this time. A [size 6 ] base plate was selected. The knee was flexed to 90 degrees and soft tissues and posterior osteophytes were removed from the joint. 40 cc of the periarticular injection was injected into the posterior medial corner of the joint. The appropriate trials were then placed on the femur and tibia. A trial polyethylene was trialed to ensure proper balancing and stability of the knee. The appropriate tibial internal rotation was then marked with a bovie. Our attention was then directed to the patella. The lug holes were drilled and the patella trial was placed. Patellar tracking was checked and deemed appropriate. Once we were happy, lug holes were drilled for the femur and trial components were removed. The tibia was subluxed and pinned into place and the keel was punched and drilled appropriately. Final components were verified and opened. The wound was copiously irrigated with normal saline. The components were impacted into place with the tibia, femur and finally the patella. The trial poly component was placed and the knee was placed in full extension. The tracking, alignment and balance were verified and a [9 mm CS ] polyethylene component was placed. Once the final components were placed an Irrisept lavage was performed and the wound was copiously irrigated with normal saline solution and the periarticular injection was given. the wound was closed in a layer-araiza fashion using #1 vicryl interrupted sutures for the arthrotomy, 2-0 interrupted vicryl suture for the subcuticular layer and kevan for final skin closure. A sterile compressive dressing was then placed. The patient was then awakened from anesthesia, transferred to the rbartlett and transferred to the PACU for recovery. My physician visual merchandising assistant was a vital part of this case. He was important in appropriate retraction during the case, and protection of soft tissues during bony cuts. His intimate knowledge of the case and my steps aided in safe and expedient completion of the procedure as well as appropriate position of the leg during the case. He was also vital in assisting with closure under my direct supervision. Due to the complexity of this case, robotic arm was used to assist in the surgery to improve accuracy and clinical outcomes. Post-op Plan: DVT ppx; ASA 81 mg BID, thigh high compression stockings Follow up: in office in 2 weeks for wound check PT: to start POD #0 at hospital, outpatient PT should be arranged. Preoperative antibiotic: Ancef 2 grams IV Rc Mcrae DO Surgeon: Rc Mcrae it architecture analyst: Catrina Lopez Type of Anesthesia: Spinal Anesthesiologist: Tyshawn Figueroa Estimated Blood Loss (mL): 25 cc Fluids Replaced: 1000 cc crystalloid
[2021-07-31 10:26] LABS: Bedside Glucose 182 mg/dL (70-110)
[2021-07-31] MEDS: Insulin Lispro 100 UNIT/ML INSULN.PEN SC (10:35)
== END 2021-07-31 14:45 | disposition home or self-care (01) ==
LOC: SDC 05:24 → AC 05:24
PROVIDERS: Anesthesiology; PCP Family Medicine; Referring Provider Orthopaedic Surgery; Visit Provider Orthopaedic Surgery
PROC: 0SRC0JZ Replacement of Right Knee Joint with Synthetic Substitute, Open Approach (ICD-10-PCS; CPT 27447; principal; 2021-07-31 07:00)
DX: M17.11 Unilateral primary osteoarthritis, right knee (principal); I10 Essential (primary) hypertension; E11.9 Type 2 diabetes mellitus without complications; E78.00 Pure hypercholesterolemia, unspecified
CPT/HCPCS: 01402; 27447; S2900; 36415; 73560; 80048; 80076; 82962; 83036; 83735; 85027; 85610; 85730; 87077; 87081; 87426; 88305; 88311; 93005; 97162; C1776; C9803; J7120; J2405

== ENCOUNTER → 2021-08-09 14:11 | Outpatient (CLI) | payer OTHER, SELFPAY ==
[2021-08-09 18:12] LABS: Hematocrit 33.5 % (40-54); Hemoglobin 10.3 g/dL (13.0-16.5); Mean Corp Hgb Conc 30.7 g/dL (32-36); Mean Corpuscular Hgb 29.3 pg (27.0-32.0); Mean Corpuscular Volume 95.2 fL (80-94); Mean Platelet Vol. 9.8 fl (6.2-12.0); Platelet Count 507 K/mm3 (150-450); RBC Distribution Width CV 13.5 % (11.6-14.6); RBC Distribution Width SD 47.8 fl (35.1-43.9); Red Blood Count 3.52 M/mm3 (4.6-6.2); White Blood Count 12.1 K/mm3 (4.4-11.0)
[2021-08-09 18:39] LABS: Vitamin B12 397 pg/mL (211-911); Vitamin D,25 Hydroxy 24.3 ng/mL
[2021-08-09 18:51] LABS: ALB/GLOB Ratio 0.7 RATIO (0.9-2.4); AST(SGOT) 14 U/L (15-37); Alanine Aminotransfer ALT/SGPT 44 U/L (16-61); Albumin, Serum 3.1 g/dL (3.2-5.0); Alkaline Phosphatase 101 U/L (45-117); Anion Gap 8 (5-15); BUN 36 mg/dL (7-18); BUN/Creat Ratio 24.3 RATIO (10-20); Calcium,Total 8.7 mg/dL (8.5-10.1); Chloride 104 mmol/L (98-107); Creatinine, Serum 1.48 mg/dL (0.70-1.30); EST Glomerular Filtration Rate 50 mL/min (>60); Est Glom Filt Rate - Afr Amer 61 mL/min (>60); Ferritin 195 ng/mL (26-388); Globulin 4.7 g/dL (2.2-4.2); Glucose 309 mg/dL (74-106); Iron 41 ug/dL (65-175); Iron Binding Capacity,Total 251 ug/dL (250-450); Potassium 5.2 mmol/L (3.5-5.1); Protein, Total 7.8 g/dL (6.4-8.2); Sodium Level 136 mmol/L (136-145); Thyroid Stim Hormone (TSH) 2.84 uIU/mL (0.358-3.74)
== END ==
PROVIDERS: PCP Family Medicine; Referring Provider Family Medicine; Visit Provider Family Medicine
DX: R63.4 Abnormal weight loss (principal); R07.9 Chest pain, unspecified; R53.83 Other fatigue; D64.9 Anemia, unspecified
CPT/HCPCS: 36415; 80053; 82306; 82607; 82728; 83540; 83550; 84443; 85027

== ENCOUNTER 2021-09-05 13:00 | Outpatient (RCR) | payer OTHER, SELFPAY ==
[2021-08-11 00:12] VITALS: BMI 28.7
== END 2021-09-10 23:59 ==
LOC: DC 13:00
PROVIDERS: PCP Family Medicine; Visit Provider Family Medicine
DX: E11.9 Type 2 diabetes mellitus without complications (principal)
CPT/HCPCS: 97803; G0108

== ENCOUNTER 2021-09-06 15:30 | Outpatient (RCR) | payer OTHER, SELFPAY ==
--- NOTE | 2021-06-08 11:13 | HP.OTEVAL_ITS ---
Patient's Visit Information RICKI MOREL is a 71 year old M, referred to Occupational Therapy by Dr. Jairon Caruso MD, with a diagnosis of Bilateral hand pain.. Date of Evaluation: 06/01/21 Occupational Therapist: Renee Alejo, OTR/L, CHT - Subjective This 71/M was seen today for OT eval for triggering fingers and pain in his R and L hands. He had OT a year ago for the same issue. pt was treated by Dr. Leila Hunt on April 19 2020. she gave pt cortisone injection in bilateral MF A1 federico. Pt did feel better and issue went away for a while. now symptoms of bilateral hands trigger in about all fingers is why he decided to see OT services again. Pt does report at times he does get swelling in bilateral elbows and wrist. 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 - Pain R and L hand 2 Pain Intensity Range: 4, 6 - ROM MP: R: WNL L:WNL PIP: R: WNL, L: WNL DIP: R: WNL, L:WNL - Strength Shoulder: R: 4-/5. 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 - Sensation Thumb: R and L: monofilament 3.22 Index: R and L: monofilament 2.83 Middle: R and L: monofilament 2.83 Ring: R and L: monofilament 2.83 Little: R and L: monofilament 2.83 - Quick DASH-Disab of Arm,Shoulder& Hand Quick DASH Score: 28.3325 - Goals Goal:: Pt will demonstrate an increase R lateral pinch and 3-jaw strength by at least 4# without pain to be more independent in ADLs and IADLs by d/c. Pt will demonstrate an increase in shoulder and elbow strength of 4+/5 for both UE to increase strength for work tasks by d/c. 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 Pt would benefit from skilled OT services 1-2 x a time for 4 weeks to increase strength and decrease pain to be more independent in leisure activities and work tasks. Today, therapist educated patient and spouse on isometric exercises to increase strength and tendon glides to decrease pain. Pt and understood and agreed to the POC. Therapy session was directly supervised and doc. approved by Renee PASCAL/Nenita,STEPHANIET. Rehabilitation Potential: Good - Anticipated Interventions A/AAROM/PROM, Strengthening, Joint Protection/Energy Conservation, Ergonomic Education, ADL Training, Home Program - Visit Plan Frequency: 1-2x /Week Duration: 4-6 Weeks General Plan: HEP. AROM/PROM. strengthening TEXT: Thank you for the opportunity to evaluate your patient. For Medicare and Medicare HMO plans, please review the plan of care and approve it. It will need to be FAXED BACK to us at [phone] for Medicare purposes. Please let me know if there are questions or concerns regarding this plan of care. Physician Signature: Date:
--- NOTE | 2021-08-03 15:49 | HP.PTEVAL ---
Patient's Visit Information RICKI MOREL is a 71 year old M referred to Physical Therapy by Dr. Jairon Caruso MD with a diagnosis of Primary OA R knee, s/p TKA 07/31/21. Date of Evaluation: 08/03/21 Physical Therapist: yTshawn Armenta, DPT, OCS, CSCS - Visit Plan Frequency: 3x /Week Duration: 4-6 Weeks Plan: 3x/week for 4-6 weeks for. 1. patellar mobs and knee rOM R, stretch quads and HS. 2. strengthen R knee and LE. 3. Gait training. 4. Ice. Given information on CBD study and patieent interested and will return signed copy next session and should be given study materials and placed on his knee for him. Let EG know when he gets here. - Subjective R TKA, , Yoselin with him today. TKA 07/31/21. Had bone on bone and it was going out on him. 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 Pain level this week is bad 10/10 with bending. No pain at rest. Sleep is OK, takes pain meds oxycodone. HEP: HS , QS. regularly. ice regularly. 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 Hobbies include sleeping. Wants to get back to normal walking. Basic ADLs I now but slow. Has not showered yet, sponge bath. Has steps at home and gets down them out of house with railing. Uses wh walker to get around. Off work until rhett. - Pain R quad and knwee Pain Intensity (Out of 10): 0 Pain Intensity Range: 0, 10 - Objective Wheels self back in wheelchair to eval room. Walks with wh walker mod I 150 feet keeping R knee flexed adn avoiding pushoff. Trasnferf with UE and using L LE to move R LE to bed I and chair I carefully. steps not tested today. R knee -8 to 72 AROM 82 PROM, L knee 0-88. 18 inch girth R at joint and 21 6 sp. 15 # flex and 5 ext. Pt hold R knee flexed adn tends to ext rotate hip in order to avoid ext moment. ankle moving well and stockings in place with wound dressed appropriately tega derm and wrapped. TUG 28 seconds. Strength ankles 4+ and L knee 4+, hip 4- - Balance/Special Test Scores Lower Extremity Functional Score: 9 - Goals Goal 1:: Walk without AD I community without gait deviations Goal Time Frame: 4-6 Weeks Goal 2:: Steps reciprocally with one rail I Goal Time Frame: 4-6 Weeks Goal 3:: Pain 0-2/10 at all times and back to 80% ramses ctivities. Goal Time Frame: 4-6 Weeks Goal 4:: i approp HEP to minimize future problems. Goal Time Frame: 4-6 Weeks Goal 5:: Ready to return to work. Goal Time Frame: 4-6 Weeks - Rehabilitation Potential Physical Therapy Diagnosis: s/p TKA 07/31/21 Rehabilitation Potential: Good - Anticipated Interventions Patient/Client Instruction: Educate patient on: Condition, Plan of Care For the Purpose of:: To decrease pain, To increase ROM, To improve muscle performance and motor function, To increase tolerance to activity/condition/position, To improve ability of physical actions for home/community/work/leisure Therapeutic Exercise to Include: Strength training, Flexibilty training, Gait and locomotor training, Passive ROM, Active ROM For the Purpose of:: To decrease pain, To increase ROM, To improve muscle performance and motor function, To increase tolerance to activity/condition/position, To improve ability of physical actions for home/community/work/leisure, To improve gait and locomotor functions Manual Therapy Techniques to Include: Mobilization, Passive ROM, Soft tissue mobilization For the Purpose of:: To decrease pain, To increase ROM Cryotherapy (ice pack, ice massage): Yes For the Purpose of:: To decrease swelling/inflammation Thank you for the opportunity to evaluate your patient. For Medicare and Medicare HMO plans, please review the plan of care and approve it. It will need to be FAXED BACK to us at [phone] for Medicare purposes. For Medicare only, by signing this I certify the plan of care. Please let me know if there are questions or concerns regarding this plan of care. Physician Signature: Date:
--- NOTE | 2021-09-06 15:53 | HP.PTDCSUM ---
It has been my pleasure to treat RICKI MOREL referred by Dr. Jairon Caruso MD, with the diagnosis of TKA 07/31/21 for a total of 12 visit(s). Discharge Date: 09/06/21 Please see the following information for a summary of their discharge status. Subjective: Not much pain on meds. Takes oxy at night. Advil during the day. Will be up at night if doesn't take pain pill. To doctor 10/24. Takes oxy 505 of time to sleep. Walking feels great adn steps good. Pain during day 2/10 with ambulation and 0/10 at rest. Activities are normal at home. Will go back to work in November likely. Will need to be on feet ann. Life normal outsid eof work. Doing ex at home including ROM, stretching. Ready to be done with PT. R quad and knwee Pain Intensity (Out of 10): 0 % Improvement: 75 Objective/Function: 17inches at knee, 19 inch 6 inch sp. 0-110 AROM. strength: 54 HS adn 55 quad. 6.5 second TUG. Walking well and safe without deviation. Steps without rail up and down with just one rail assist. Goal 1:: Walk without AD I community without gait deviations Goal Progress: Goal Met Goal 2:: Steps reciprocally with one rail I Goal Progress: Goal Met Goal 3:: Pain 0-2/10 at all times and back to 80% ramses ctivities. Goal Progress: Goal Met Goal 4:: i approp HEP to minimize future problems. Goal Progress: ROM Goal 5:: Ready to return to work. Goal Progress: Goal Met Plan: d/c pt request. Discharge Comments: To doctor in 6 week and will strengthen and ROM at home until then. If there are questions or concerns regarding this patient's physical therapy, please feel free to call me at [phone]. Thank you for the referral of this patient. Sincerely, Tyshawn Armenta, DPT, OCS, CSCS Balance/Gait/Functional tests - Balance/Special Test Scores Lower Extremity Functional Score: 52 WOMAC Total Score: 54 WOMAC Percentage: 43.7500
== END 2021-09-06 19:00 | disposition home or self-care (01) ==
LOC: PT 15:30
PROVIDERS: PCP Family Medicine; Referring Provider Family Medicine; Visit Provider Family Medicine
DX: M79.643 Pain in unspecified hand (principal); M17.11 Unilateral primary osteoarthritis, right knee
CPT/HCPCS: 97110; 97140; 97161; 97164; 97165

== ENCOUNTER 2021-09-25 05:52 | Day surgery (SDC) | payer OTHER, SELFPAY ==
[2021-09-11 14:32] LABS: Absolute Lymphocyte Count 1.62 X10^3/uL (0.83-4.51); Basophil# 0.05 X10^3/uL; Basophil% 0.6 % (0-1); Eosinophil# 0.41 X10^3/uL; Eosinophils% 5.2 % (0-5); Hematocrit 36.3 % (40-54); Hemoglobin 11.4 g/dL (13.0-16.5); Lymphocyte # 1.62 X10^3/ul (0.83-4.51); Lymphocyte % 20.7 % (19-41); Mean Corp Hgb Conc 31.4 g/dL (32-36); Mean Corpuscular Hgb 28.9 pg (27.0-32.0); Mean Corpuscular Volume 91.9 fL (80-94); Mean Platelet Vol. 9.7 fl (6.2-12.0); Monocyte# 0.73 X10^3/uL; Monocyte% 9.3 % (0-10); NRBC Flagged by Analyzer 0 % (0-5); Neutrophil # 4.95 X10^3/uL (2.7-7.7); Neutrophil % 63.2 % (47-70); Platelet Count 339 K/mm3 (150-450); RBC Distribution Width CV 13.4 % (11.6-14.6); RBC Distribution Width SD 45.4 fl (35.1-43.9); Red Blood Count 3.95 M/mm3 (4.6-6.2); White Blood Count 7.8 K/mm3 (4.4-11.0)
[2021-09-11 15:00] LABS: Hemoglobin A1c 7.8 % (3.8-5.6)
[2021-09-11 15:03] LABS: Anion Gap 3 (5-15); BUN 39 mg/dL (7-18); BUN/Creat Ratio 23.8 RATIO (10-20); Calcium,Total 8.7 mg/dL (8.5-10.1); Chloride 109 mmol/L (98-107); Creatinine, Serum 1.64 mg/dL (0.70-1.30); EST Glomerular Filtration Rate 44 mL/min (>60); Est Glom Filt Rate - Afr Amer 54 mL/min (>60); Glucose 287 mg/dL (74-106); Potassium 4.6 mmol/L (3.5-5.1); Sodium Level 139 mmol/L (136-145)
[2021-09-25 06:28] VITALS: BP 131/62; PULSE 72; RESP 16; TEMP 36.6; O2SAT 98; BMI 29.0
[2021-09-25] MEDS: Lactated Ringers 1,000 ML 15 ML IV (06:34)
[2021-09-25 07:00] LABS: Bedside Glucose 266 mg/dL (70-110)
[2021-09-25] MEDS: Cefazolin 2 GM in 0.9% Normal Saline 100 ML IV (07:37)
[2021-09-25 08:35] VITALS: BP 131/62; BP 136/66; PULSE 67; RESP 16; TEMP 36.1; O2SAT 100
[2021-09-25 08:45] VITALS: BP 131/62; BP 150/68; PULSE 66; RESP 16; O2SAT 97
[2021-09-25 08:50] VITALS: BP 131/62; BP 143/61; PULSE 64; RESP 16; O2SAT 100
[2021-09-25 08:55] VITALS: BP 131/62; BP 150/66; PULSE 60; RESP 16; O2SAT 100
[2021-09-25] MEDS: HYDROcodone Bitartrate/Apap 5/325 Tablet PO (09:26)
--- NOTE | 2021-09-25 09:54 | OP.PCM_ITS ---
Report of Operation Date of Procedure: 09/25/21 Pre-Operative Diagnosis: A 1 stenosing tenosynovitis Left thumb, index and midd le fingers Post-Operative Diagnosis: same Surgery/Procedure Performed:: Release A1 pulleys left thumb, LIF and LMF Description of Surgical Findings:: Report of Operation Date of Procedure: 09/25/21 Preoperative Diagnosis: A1 stenosing tenosynovitis, left thumb, index and middle [ ] fingers Postoperative Diagnosis: same Procedure Performed: Release A 1 pulleys left thumb, LIF and LMF Anesthesia: IV Regional Anesthesiologist: Josias Bentley M.D. Description of Procedure: With appropriate informed consent, the patient was taken to the operative suite. After the induction of regional anesthesia, the left upper extremity was prepared and draped sterilely. Subsequently, a transverse incision was made in the base of the [left thumb ] on the volar aspect overlying the annular federico with #15 blade scalpel. Hemostasis was perfected with bipolar electrocautery. Dissection was carried down to the flexor tendon sheath. Retractors were placed medially and laterally for protection of neurovascular structures. Thereafter, the annular federico was incised with a combination of scalpel and scissor dissection. This procedure was repeated on the LIF and LMF. The flexor tendon was inspected and I was able to take the left [thumb, index and middle ] fingers through a full range of motion without any catching, locking or triggering. Subsequently, the wound was irrigated and closed with interrupted sutures of 4-0 nylon. A sterile well- padded dressing and Yoel wrap were applied. The tourniquet was released. Excellent blood flow returned to the left upper extremity. The patient was transferred to the PACU in stable and satisfactory condition. Rc Mcrae DO Surgeon: Rc Mcrae emergency service restorer: None Type of Anesthesia: Charity Rebolledo Anesthesiologist: Josias Bentley Admgómez VTE Documentation VTE Present on Admission: No VTE Mechan Device Prophylaxis: SCD's VTE Pharm Prophylaxis ordered?: No Reason prophylaxis not ordered:: Treatment Not Indicated
[2021-09-25 09:55] VITALS: BP 131/62; BP 152/61; PULSE 63; RESP 16; TEMP 36.6; O2SAT 100
== END 2021-09-25 10:05 ==
LOC: SDC 05:52 → AC 05:53
PROVIDERS: PCP Family Medicine; Referring Provider Orthopaedic Surgery; Visit Provider Orthopaedic Surgery
PROC: (CPT 26055; principal; 2021-09-25 07:20)
DX: M65.312 Trigger thumb, left thumb (principal); M65.332 Trigger finger, left middle finger; I10 Essential (primary) hypertension; E11.9 Type 2 diabetes mellitus without complications; E78.00 Pure hypercholesterolemia, unspecified; Z79.4 Long term (current) use of insulin
CPT/HCPCS: 01810; 26055 ×2; 36415; 80048; 82962; 83036; 85025; 87426; C9803; J7120; J2405

== ENCOUNTER 2021-09-26 13:00 | Outpatient (RCR) | payer OTHER, SELFPAY ==
[2021-09-11 00:09] VITALS: BMI 28.7
== END 2021-10-10 23:59 ==
LOC: DC 13:00
PROVIDERS: PCP Family Medicine; Visit Provider Family Medicine
DX: E11.9 Type 2 diabetes mellitus without complications (principal)
CPT/HCPCS: 97803; G0108

== ENCOUNTER 2021-10-12 15:58 | Outpatient (RCR) | payer OTHER, SELFPAY ==
[2021-10-11 00:15] VITALS: BMI 28.7
== END 2021-11-10 23:59 ==
LOC: DC 15:58
PROVIDERS: PCP Family Medicine; Visit Provider Family Medicine
DX: E11.9 Type 2 diabetes mellitus without complications (principal)
CPT/HCPCS: G0108

== ENCOUNTER 2021-12-28 10:26 | Outpatient (RCR) | payer OTHER, SELFPAY ==
[2021-11-11 00:15] VITALS: BMI 28.7
== END 2022-01-08 23:59 | disposition home or self-care (01) ==
LOC: DC 10:26
PROVIDERS: PCP Family Medicine; Visit Provider Family Medicine
DX: E11.9 Type 2 diabetes mellitus without complications (principal)
CPT/HCPCS: G0109

== ENCOUNTER 2022-04-04 10:20 | Outpatient (CLI) | payer OTHER, SELFPAY ==
[2022-04-04 13:01] LABS: AST(SGOT) 20 U/L (15-37); Alanine Aminotransfer ALT/SGPT 33 U/L (16-61); Albumin, Serum 3.7 g/dL (3.2-5.0); Alkaline Phosphatase 81 U/L (45-117); Anion Gap 6 (5-15); BUN 36 mg/dL (7-18); BUN/Creat Ratio 25.7 RATIO (10-20); Calcium,Total 8.7 mg/dL (8.5-10.1); Chloride 110 mmol/L (98-107); Cholesterol 154 mg/dL (200); EST Glomerular Filtration Rate 53 mL/min (>60); Est Glom Filt Rate - Afr Amer 64 mL/min (>60); Globulin 3.7 g/dL (2.2-4.2); Glucose 157 mg/dL (74-106); High Density Lipoprotein 39 mg/dL; PSA,Total - Annual Screen 0.57 ng/mL (0.00-4.00); Protein, Total 7.4 g/dL (6.4-8.2); Sodium Level 138 mmol/L (136-145); Thyroid Stim Hormone (TSH) 2.13 uIU/mL (0.358-3.74); Triglycerides 90 mg/dL; Very Low Density Lipoprotein 18 mg/dL (5-40)
== END 2022-04-04 23:59 | disposition home or self-care (01) ==
LOC: MFPLAB 10:24
PROVIDERS: PCP Family Medicine; Referring Provider Family Medicine; Visit Provider Family Medicine
DX: E55.9 Vitamin D deficiency, unspecified (principal); E11.9 Type 2 diabetes mellitus without complications; Z12.5 Encounter for screening for malignant neoplasm of prostate
CPT/HCPCS: 36415; 80053; 80061; 82306; 84153; 84443; G0103

== ENCOUNTER → 2022-10-10 | Outpatient (CLI) | payer OTHER, SELFPAY ==
[2022-10-10 18:21] LABS: Anion Gap 9 (5-15); BUN 54 mg/dL (7-18); BUN/Creat Ratio 27.4 RATIO (10-20); Calcium,Total 8.3 mg/dL (8.5-10.1); Chloride 112 mmol/L (98-107); Creatinine, Serum 1.97 mg/dL (0.70-1.30); EST Glomerular Filtration Rate 36 mL/min (>60); Est Glom Filt Rate - Afr Amer 43 mL/min (>60); Glucose 127 mg/dL (74-106); Potassium 5.4 mmol/L (3.5-5.1); Sodium Level 141 mmol/L (136-145)
== END | disposition home or self-care (01) ==
LOC: MFPLAB 16:00
PROVIDERS: PCP Family Medicine; Referring Provider Family Medicine; Visit Provider Family Medicine
DX: N18.30 Chronic kidney disease, stage 3 unspecified (principal)
CPT/HCPCS: 36415; 80048

== ENCOUNTER → 2023-01-02 | Outpatient (CLI) | payer OTHER, SELFPAY ==
[2023-01-02 19:28] LABS: Anion Gap 7 (5-15); BUN 33 mg/dL (7-18); BUN/Creat Ratio 22.8 RATIO (10-20); Calcium,Total 9.1 mg/dL (8.5-10.1); Chloride 111 mmol/L (98-107); Creatinine, Serum 1.45 mg/dL (0.70-1.30); EST Glomerular Filtration Rate 51 mL/min (>60); Est Glom Filt Rate - Afr Amer 62 mL/min (>60); Glucose 118 mg/dL (74-106); Potassium 5.1 mmol/L (3.5-5.1); Sodium Level 144 mmol/L (136-145)
== END | disposition home or self-care (01) ==
LOC: MFPLAB 16:41
PROVIDERS: PCP Family Medicine; Referring Provider Family Medicine; Visit Provider Family Medicine
DX: N18.30 Chronic kidney disease, stage 3 unspecified (principal)
CPT/HCPCS: 36415; 80048

== ENCOUNTER → 2023-08-02 | Outpatient (CLI) | payer OTHER, SELFPAY ==
[2023-08-02 13:38] LABS: Hematocrit 35.7 % (40-54); Hemoglobin 11.5 g/dL (13.0-16.5); Mean Corp Hgb Conc 32.2 g/dL (32-36); Mean Corpuscular Hgb 30.3 pg (27.0-32.0); Mean Corpuscular Volume 93.9 fL (80-94); Platelet Count 273 K/mm3 (150-450); RBC Distribution Width CV 13.8 % (11.6-14.6); RBC Distribution Width SD 47.6 fl (35.1-43.9); White Blood Count 5.4 K/mm3 (4.4-11.0)
[2023-08-02 13:50] LABS: Vitamin D,25 Hydroxy 35.7 ng/mL
[2023-08-02 13:52] LABS: Iron 91 ug/dL (65-175)
[2023-08-02 13:58] LABS: AST(SGOT) 25 U/L (15-37); Alanine Aminotransfer ALT/SGPT 38 U/L (16-61); Albumin, Serum 3.7 g/dL (3.2-5.0); Alkaline Phosphatase 83 U/L (45-117); Anion Gap 0 (5-15); BUN 46 mg/dL (7-18); BUN/Creat Ratio 29.7 RATIO (10-20); Calcium,Total 8.6 mg/dL (8.5-10.1); Chloride 112 mmol/L (98-107); Cholesterol 233 mg/dL (200); Creatinine, Serum 1.55 mg/dL (0.70-1.30); EST Glomerular Filtration Rate 47 mL/min (>60); Est Glom Filt Rate - Afr Amer 57 mL/min (>60); Globulin 3.8 g/dL (2.2-4.2); Glucose 120 mg/dL (74-106); High Density Lipoprotein 40 mg/dL; Potassium 5.5 mmol/L (3.5-5.1); Protein, Total 7.5 g/dL (6.4-8.2); Sodium Level 139 mmol/L (136-145); Thyroid Stim Hormone (TSH) 1.93 uIU/mL (0.358-3.74); Triglycerides 134 mg/dL; Very Low Density Lipoprotein 27 mg/dL (5-40)
[2023-08-02 13:58] LABS: PTHIN 84.1 pg/mL (18.4-80.1)
[2023-08-04 08:08] LABS: V-Zoster IgG (Immunity) 2787 index (Immune >165)
== END | disposition home or self-care (01) ==
PROVIDERS: PCP Family Medicine; Referring Provider Family Medicine; Visit Provider Family Medicine
DX: Z01.84 Encounter for antibody response examination (principal); E11.65 Type 2 diabetes mellitus with hyperglycemia; E11.22 Type 2 diabetes mellitus with diabetic chronic kidney disease; N18.30 Chronic kidney disease, stage 3 unspecified; Z12.5 Encounter for screening for malignant neoplasm of prostate; E55.9 Vitamin D deficiency, unspecified
CPT/HCPCS: 36415; 80053; 80061; 82306; 83540; 83970; 84153; 84443; 85027; 86787; G0103

== ENCOUNTER → 2024-04-30 | Outpatient (CLI) | payer OTHER, SELFPAY ==
[2024-04-30 09:17] LABS: Hemoglobin 12.6 g/dL (13.0-16.5); Mean Corp Hgb Conc 31.5 g/dL (32-36); Mean Corpuscular Hgb 29.3 pg (27.0-32.0); Platelet Count 261 K/mm3 (150-450); RBC Distribution Width CV 13.8 % (11.6-14.6); RBC Distribution Width SD 47.1 fl (35.1-43.9); White Blood Count 7.6 K/mm3 (4.4-11.0)
[2024-04-30 09:22] LABS: Erythrocyte Sedimentation Rate 10 mm/hr (0-20)
[2024-04-30 10:59] LABS: ALB/GLOB Ratio 1.1 RATIO (0.9-2.4); AST(SGOT) 32 U/L (15-37); Alanine Aminotransfer ALT/SGPT 49 U/L (16-61); Albumin, Serum 3.9 g/dL (3.2-5.0); Alkaline Phosphatase 82 U/L (45-117); Anion Gap 12 (5-15); BUN 52 mg/dL (7-18); BUN/Creat Ratio 28.1 RATIO (10-20); Calcium,Total 9.2 mg/dL (8.5-10.1); Chloride 110 mmol/L (98-107); Cholesterol 185 mg/dL (200); Creatinine, Serum 1.85 mg/dL (0.70-1.30); EST Glomerular Filtration Rate 38 mL/min (>60); Est Glom Filt Rate - Afr Amer 46 mL/min (>60); Globulin 3.7 g/dL (2.2-4.2); Glucose 99 mg/dL (74-106); High Density Lipoprotein 42 mg/dL; Potassium 4.9 mmol/L (3.5-5.1); Protein, Total 7.6 g/dL (6.4-8.2); Sodium Level 142 mmol/L (136-145); Thyroid Stim Hormone (TSH) 3.63 uIU/mL (0.358-3.74); Triglycerides 107 mg/dL; Very Low Density Lipoprotein 21 mg/dL (5-40)
[2024-04-30 11:06] LABS: CRP < 2.90 mg/L (0.0-3.0)
[2024-05-04 10:07] LABS: Beef <0.10 kU/L (Class 0); Chocolate <0.10 kU/L (Class 0); Codfish <0.10 kU/L (Class 0); Corn <0.10 kU/L (Class 0); Cytoplasmic Ab (C-ANCA) <1:20 titer (Neg:<1:20); Egg, Whole <0.10 kU/L (Class 0); Endomysial Antibody IgA Negative (Negative); Immunoglobulin A 123 mg/dL (61-437); Immunoglobulin E 94 IU/mL (6-495); Immunoglobulin G 1058 mg/dL (603-1613); Immunoglobulin M 39 mg/dL (15-143); Milk (Cow) <0.10 kU/L (Class 0); Mussels <0.10 kU/L (Class 0); Peanut <0.10 kU/L (Class 0); Perinuclear Ab (P-ANCA) <1:20 titer (Neg:<1:20); Pork <0.10 kU/L (Class 0); Salmon <0.10 kU/L (Class 0); Shrimp <0.10 kU/L (Class 0); Soybean <0.10 kU/L (Class 0); Tuna <0.10 kU/L (Class 0); Wheat <0.10 kU/L (Class 0); t-Transglutaminase IgA <2 U/mL (0-3)
== END | disposition home or self-care (01) ==
PROVIDERS: Internal Medicine Gastroenterology; PCP Family Medicine; Referring Provider Family Medicine; Visit Provider Family Medicine
DX: R19.6 Halitosis (principal); E11.22 Type 2 diabetes mellitus with diabetic chronic kidney disease; N18.30 Chronic kidney disease, stage 3 unspecified
CPT/HCPCS: 80053; 80061; 82784; 82785; 83516; 84403; 84443; 85027; 85652; 86003; 86005; 86140; 86255; 86256

== ENCOUNTER → 2024-04-30 | Outpatient (CLI) | payer OTHER, SELFPAY ==
--- NOTE | 2024-04-30 12:49 | EKG12_ITS ---
Test Reason : PRE OP Blood Pressure : / mmHG Vent. Rate : 069 BPM Atrial Rate : 069 BPM P-R Int : 154 ms QRS Dur : 098 ms QT Int : 386 ms P-R-T Axes : -19 074 046 degrees QTc Int : 413 ms Sinus rhythm with marked sinus arrhythmia Otherwise normal ECG Confirmed by NEETU LOZOYA ([id number]), graphic editor CHAITANYA CALDERON ([id number]) on 05/01/2024 12:58:56 PM Referred By: Darien Lema Confirmed By:NEETU LOZOYA
[2024-04-30 12:54] LABS: Hemoglobin A1c 6.8 % (3.8-5.6)
== END | disposition home or self-care (01) ==
LOC: PSN 12:49
PROVIDERS: PCP Family Medicine; Referring Provider Orthopaedic Surgery; Visit Provider Physician Assistant
DX: Z01.810 Encounter for preprocedural cardiovascular examination (principal); E11.9 Type 2 diabetes mellitus without complications; Z01.818 Encounter for other preprocedural examination
CPT/HCPCS: 36415; 83036; 93005

== ENCOUNTER → 2024-05-07 | Outpatient (CLI) | payer OTHER, SELFPAY ==
[2024-05-07 15:23] LABS: Platelet Count 262 K/mm3 (150-450); RET-HE 32.8 pg (30-35)
[2024-05-07 15:57] LABS: Vitamin B12 449 pg/mL (211-911)
[2024-05-07 16:17] LABS: Ferritin 76 ng/mL (26-388); Iron 48 ug/dL (65-175); Iron Binding Capacity,Total 267 ug/dL (250-450); LDH 222 U/L (87-241)
[2024-05-09 08:10] LABS: Transferrin 226 mg/dL (177-329)
== END | disposition home or self-care (01) ==
LOC: LAB 14:39
PROVIDERS: PCP Family Medicine; Visit Provider Internal Medicine Gastroenterology
DX: D64.9 Anemia, unspecified (principal)
CPT/HCPCS: 36415; 82607; 82728; 82746; 83540; 83550; 83615; 84466; 85045

== ENCOUNTER 2024-05-18 06:01 | Day surgery (SDC) | payer OTHER, SELFPAY ==
[2024-05-18] VITALS (8 sets, daily range): BP systolic 104–154; BP diastolic 60–77; PULSE 63–77; RESP 14–18; TEMP 36.1–37.4; O2SAT 95–100; BMI 29.0
--- NOTE | 2024-05-18 | IMM_PTH ---
PATIENT: RICKI MOREL LOC: EN U#:[id number] AGE/SX: 74/M ROOM: RE05/18/[address]: Dr. Wilfrid Najera DO : 1950 BED: DIS: 05/18/2024 SPEC #: [id number] RECD: 05/19/24 11:17 STATUS: PAIGE REAndrei #: [id number] LIDIA: 05/18/24 00:[address]: Wilfrid Najera DEPT: IMMUNOHISTOCHEMISTRY RECD BY: Evan Mazariegos ENTERED: 05/19/24 11:17 SP TYPE: IMMUNO OTHR DR: Dr. Salvatore Caruso MD Tissues: B - Esophagus, NOS Procedures: P53 (initial) KI-67 (add) PHYSICIAN & INSTITUTION [place] [id number] SPECIMEN INFORMATION: Tissue Source: B- Distal esophagus Clinical Info: Anemia, bloating Specimen Number: [id number] CPT code: 26092,83538 METHODOLOGY: Deparaffinized sections of prefer/formalin-fixed tissue or PAP/DQ stained slides are incubated with monoclonal/polyclonal antibodies/oligonucleotide probes. Localization is made via biotin free immunoperoxidase method. Appropriate controls are performed and reacted as expected. Results on target cell population are indicated in the following table: RESULTS: ANTIBODY / CLONE RESULT Block B P53 (DO-7) negative (null pattern) Ki-67 (30-9) positive, very low These tests were developed and their performance characteristics determined by [facility]. They may not have been cleared or approved by the U.S. Food and Drug Administration. The FDA has determined that such clearance or approval is not necessary. The above immunohistochemical/dualISH markers are ordered and reviewed by the Pathologist. INTERPRETATION: B. Distal esophagus, biopsy: Negative for dysplasia. DONIS/ 05/20/2024
[2024-05-18] MEDS: Lactated Ringers 1,000 ML 15 ML IV (06:40)
--- NOTE | 2024-05-18 06:57 | PRE.ANES_ITS ---
ASA Classification* ASA Classification ASA Classification: 3 Assessment & Plan Anesthesia* Anesthesia Assessment Anesthesia Assessment: Discussed sedation and/or anesthesia options, risks, benefits, and alternatives with patient/parents/legal guardian/POA. Questions invited. The patient/parents/legal guardian/POA seems to understand and agrees to proceed with anesthesia plan. Reviewed the physical assessment, medical history, allergy history and patient home medications list prior to surgery/procedure/anesthetic and documented any changes. Performed airway and anesthesia risk assessments. Anesthesia Type Anesthesia Type: MAC Anesthesia Focused Assessment* Temperature: 97.0 F Pulse Rate: 71 Blood Pressure: 154/77 Respiratory Rate: 14 Pulse Ox: 100 Airway Assessment Mouth opens: >3 cm Mallampati Score: II Focused Labs Anesthesia Preop lab: CBC WBC 7.6 K/mm3 (4.4-11.0) 04/30/24 08:25 RBC 4.30 M/mm3 (4.6-6.2) L 04/30/24 08:25 Hgb 12.6 g/dL (13.0-16.5) L 04/30/24 08:25 Hct 40.0 % (40-54) 04/30/24 08:25 Plt Count 261 K/mm3 (150-450) 04/30/24 08:25 CHEMISTRY Potassium 4.9 mmol/L (3.5-5.1) 04/30/24 08:25 Sodium 142 mmol/L (136-145) 04/30/24 08:25 Magnesium 2.2 mg/dL (1.6-2.6) 07/18/21 10:55 BUN 52 mg/dL (7-18) H 04/30/24 08:25 Creatinine 1.85 mg/dL (0.70-1.30) H 04/30/24 08:25 Glucose 99 mg/dL (74-106) 04/30/24 08:25 POC Glucose 266 mg/dL (70-110) H 09/25/21 06:14 TSH 3.63 uIU/mL (0.358-3.74) 04/30/24 08:25 COAG PT 13.4 SECONDS (11.7-14.9) 07/18/21 10:55 Pre-Assessment Diagnosis/Proposed Procedure Planned Operative Procedure(s): EGD Anesthesia History Anesthesia History - 911 telecommunicator: Anesthesia History - 911 telecommunicator Hx Hospitalization No 05/11/24 14:56 Any Problems With Anesthesia Yes: N/V 05/11/24 14:56 Cholinesterase deficiency No 05/11/24 14:56 You/Your Family Experience No 05/11/24 14:56 fever (hyperthermia) with Relationship Recent Exposure to Contagious No 05/18/24 06:36 Disease Does patient have nerve No 05/11/24 14:56 stimulator Patient instructed to have device shut off --Does patient have Pacemaker No 05/18/24 06:36 or ICD? When Was Last Pacemaker Check QUESTION #4 FULL TEXT: You/Your Family Experience fever (hyperthermia) with Anesthesia Last Oral Intake Last Oral intake: Last Oral Intake NPO since 20:00 05/18/24 06:36 Meds taken in AM with sips of No 05/18/24 06:36 water? Meds patient instructed to take am of surgery PONV PONV - 911 telecommunicator: PONV - 911 telecommunicator Female No 05/11/24 14:56 HX of Motion Sickness Yes 05/11/24 14:56 HX of N/V After Surgery Yes 05/11/24 14:56 Non-Smoker Yes 05/11/24 14:56 Duration of Surgery greater No 05/11/24 14:56 than 60 minutes Number of Risk Factors 3 05/11/24 14:56 PONV Score Moderate Risk 05/11/24 14:56 Height & Weight Height & Weight: Anesthesia: Height & Weight Height 5 ft 10 in 05/18/24 06:36 Weight: 91.7 kg 05/18/24 06:36 Body Mass Index (BMI) 29.0 05/18/24 06:36 Respiratory Assessment Respiratory Assessment - 911 telecommunicator: Respiratory Tract Infection Hx - 911 telecommunicator Hx Respiratory Tract Infection No 05/11/24 14:56 STOP Sleep Apnea STOP Sleep Apnea - 911 telecommunicator: STOP Sleep Apnea - 911 telecommunicator Hx Hypertension Yes 05/11/24 14:56 Hx Sleep Apnea Yes 05/11/24 14:56 CPAP Yes 05/11/24 14:56 BIPAP No 05/11/24 14:56 Do you snore loudly (louder than talking or can be heard Do you often feel tired/ fatigued/ sleepy during daytime? Has anyone observed you stop breathing during sleep? STOP Results Positive 05/11/24 14:56 QUESTION #5 FULL TEXT : Do you snore loudly (louder than talking or can be heard through closed doors)? 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 Specify any problems Hx of Preganancy in last 3 N/A 05/11/24 14:56 Months Nurse Filling Out Transfusion SFRANTZ 05/11/24 14:56 & Questions: Date: 05/11/24 05/11/24 14:56 Time: 14:59 05/11/24 14:56 Patient unable to answer at this time (ie. confused, unrespo /Reproduction History /Reproductive History - 911 telecommunicator: /Reproductive Hx- 911 telecommunicator Hx Now No 05/11/24 14:56 Gestational Age (in weeks): EDC: Hx Hx Para Hx Section SAB No 05/11/24 14:56 Active Medications Active Medications: Current Medications Generic Name Dose Route Start Last Admin Trade Name Freq PRN Reason Stop Dose Admin Lactated Ringer's 1,000 mls @ 15 mls/hr 05/18/24 06:15 05/18/24 06:40 IV 15 mls/hr .Q48H KIRSTY Administration PFSH Medical History (Updated 05/15/24 @ 11:25 by Edwige Velasco LPN) Loss of hearing Open wound History of trigger finger Insulin dependent diabetes mellitus Bladder disease Restless legs Blackout Dietary restriction Gastric reflux Sleep apnea History of stress test H. pylori infection Hyperlipidemia Hyperkalemia Cellulitis Colon polyp Hordeolum externum left upper eyelid Blepharitis of left upper eyelid Wears glasses Depression High cholesterol Easy bruising Injury of head and neck Gastric reflux Non-smoker CPAP (continuous positive airway pressure) dependence Leg cramps Type 2 diabetes mellitus Vision problems Kidney stones HTN (hypertension) Cataracts, bilateral Home Medications ?Medication ?Instructions ?Recorded ?Last Taken ?Type duloxetine 60 mg capsule,delayed 60 mg PO BID PRN Anxiety 06/01/14 05/17/24 History release amlodipine 5 mg tablet 5 mg PO DAILY bp 04/14/19 05/17/24 History insulin lispro 100 unit/mL 25 units SQ TID bld glucose 04/14/19 05/17/24 History subcutaneous pen (Humalog KwikPen (U-100) Insulin) omeprazole 40 mg capsule,delayed 40 mg PO DAILY gerd 05/17/20 05/17/24 History release insulin glargine 100 unit/mL (3 100 units subcut QHS 06/13/20 05/17/24 History mL) subcutaneous pen (Lantus Solostar U-100 Insulin) dapagliflozin propanediol 5 mg 5 mg PO DAILY 09/20/21 05/17/24 History tablet (Farxiga) atorvastatin 40 mg tablet 40 mg PO DAILY 03/13/24 05/17/24 History enalapril maleate 10 mg tablet 10 mg PO DAILY 03/13/24 05/17/24 History tolterodine 4 mg capsule,extended 4 mg PO Q24H 03/13/24 05/17/24 History release 24 hr zinc acetate 25 mg (zinc) capsule 25 mg PO DAILY SUPPLEMENT 03/13/24 05/17/24 History Bifidobacterium infantis 10.5 mg 0.525 mg PO DAILY 05/11/24 05/17/24 History (10 million cell) chewable tablet (Align) ascorbic acid (vitamin C) 500 mg 500 mg PO DAILY 05/18/24 05/17/24 History capsule cholecalciferol (vitamin D3) 25 25 mcg PO DAILY 05/18/24 Unknown History mcg (1,000 unit) capsule (Vitamin D3) ipratropium bromide 21 mcg (0.03 2 spray intranasal TID PRN PRN 05/18/24 05/17/24 History %) nasal spray allergy symptoms Allergy/AdvReac Type Severity Reaction Status Date / Time cephalexin (From Keflex) Allergy Nausea Verified 05/11/24 14:25 pravastatin Allergy Diarrhea Verified 05/11/24 14:25 Family History Unknown Diabetes Hypertension Kidney stones Surgical History (Updated 05/11/24 @ 14:56 by Elise Mead) Hx of sinus surgery Hx of colonoscopy with polypectomy Hx of total knee replacement History of left knee surgery History of colonoscopy (~04/2019) S/P cataract surgery H/O nephrolithotomy with removal of calculi History of left knee replacement Social History (Updated 04/19/20 @ 15:[address] Lelo Cody, ) Smoking Status: Never smoker Review of Systems (Anesthesia) ROS Narrative System reviewed and no additional complaints, except as documented.
--- NOTE | 2024-05-18 07:00 | EGD_PTH ---
PATIENT: RICKI MOREL LOC: EN U#:[id number] AGE/SX: 74/M ROOM: RE05/18/[address]: Dr. Wilfrid Najera DO : 1950 BED: DIS: 05/18/2024 SPEC #: [id number] RECD: 05/18/24 10:16 STATUS: PAIGE ANIA #: [id number] LIDIA: 05/18/24 07:[address]: Wilfrid Najera DEPT: SURGICAL PATHOLOGY RECD BY: Sheela Tracy ENTERED: 05/18/24 11:20 SP TYPE: EGD BIOPSY OT DR: Dr. Salvatore Caruso MD Tissues: A - Duodenum, NOS B - Esophagus, NOS Procedures: Special Stain Group I Surgery Specimen Level IV Alcian Blue/PAS (control) HEADER OPERATION: EGD with biopsy PRE-OP DIAGNOSIS: Anemia, bloating TISSUE SUBMITTED: A- Duodenal polyp, B- Distal esophaugs MICROSCOPIC DIAGNOSIS A. Duodenal polyp, biopsy: Fragments of gastric mucosa with changes consistent with hyperplastic/ inflammatory polyp. See comment. B. Distal esophagus, biopsy: Fragments of gastroesophageal mucosa with focal intestinal metaplasia (goblet cell metaplasia), consistent with Wills's esophagus. Chronic inflammation. Negative for dysplasia. See comment. DONIS/ 05/19/2024 COMMENT A. Duodenal mucosa with not identified in the specimen. B. Alcian blue/PAS stain with matched control is used in the evaluation of the specimen. Immunohistochemistry ([id number]) for P53 and Ki-67 will be performed and results will be reported separately. Correlation with clinical, endoscopic findings and appropriate follow up are necessary. MICROSCOPIC DESCRIPTION Slides are reviewed. GROSS DESCRIPTION A. Received in fixative is one container labeled with the patient's name and designated Duodenal polyp. The specimen consists of two irregular fragments of light liu soft tissue that in aggregate measure 0.6 x 0.3 x 0.1 cm. The specimen is totally submitted in one cassette. B. Received in fixative is one container labeled with the patient's name and designated Distal esophagus. The specimen consists of multiple irregular fragments of light liu soft tissue that in aggregate measure 1.0 x 0.6 x 0.1 cm. The specimen is totally submitted in one cassette. Ja 05/18/2024 TC:5 CPT:10373e5,04027
--- NOTE | 2024-05-18 07:00 | HP.PCM_ITS ---
History and Physical Date of Admission: 05/18/24 74 M who presents to the office today for initial consult. *I established 6 pt reports that he was initially coming to us for diarrhea, has since resolved this concern with Leonardo roman. Pt reports formed bm ever day; denies blood in the stool. Pt reports that for the past few years he has had bad breath off and on, pt's describes the smell as a range from smell of rotten cauliflower / poop / or chemical poison She states it is not like normal bad breath. ROS Const Constitutional: Positive for fatigue; No fever(s) or weight change ENT ENT: No difficulty swallowing Gastro GI: Positive for bloating, change in bowel habits, constipation, diarrhea and excessive flatus; No abdominal pain, belching, change in stool character, coffee ground emesis, cramping, heartburn, difficulty swallowing, feeling full early, incontinent of stools, Vomiting blood/hematemesis, Blood in stool, loose stools, Black,tarry stools, nausea/dyspepsia, pain with swallowing, vomiting or other Musc Musculoskeletal: Positive for joint pain, joint swelling, muscle cramps, stiffness, Arthritis and restless legs Skin Skin: No yellowing of the eye or itchy eyes Neuro Neurology: Positive for restless legs Psych Psychiatric: Positive for anxiety and Positive for depression Endo Endocrine: Positive for fatigue; No weight change Aller/Imm Allergy/Immunologic: No itchy eyes Bharat/Lymp Hematologic/Lymphatic: Positive for easy bruising; No easy bleeding Exam Const General: cooperative and comfortable Nutritional Appearance: average body habitus and well nourished [facility] Head: normal to inspection Ears: hearing grossly normal bilaterally Nose: external nose normal Face and sinus: normal facial exam Mouth: oral mucosae normal Throat: posterior oropharynx normal Eyes General: appearance normal, both eyes and all related structures Neck Neck: normal visual inspection Chest Chest palpation & inspection: normal inspection of the chest and normal palpation of entire chest wall Resp Effort & Inspection: normal respiratory effort Auscultation: Bilateral: Clear to Auscultation Cardio Palpation: normal PMI Rate: regular rate Rhythm: regular rhythm GI Inspection: normal to inspection Auscultation: normal bowel sounds Percussion: normal to percussion Palpation: no hepatosplenomegaly Skin General: no rashes or lesions noted Neuro General: patient alert Extrem General: normal to inspection Psych Affect: normal affect Assessment and Plan Assessment and Plan (1) Halitosis: Status: Acute Plan: Differential diagnosis for his halitosis does include Vivienne esophagitis, gastroparesis, small bacterial overgrowth from a gastroenterology standpoint. He will undergo an upper endoscopy to evaluate his upper GI tract. Will also get food allergy testing, celiac testing, ANCA, immunoglobulins. He may need entire treatment for small bacterial overgrowth. When he gets his upper endoscopy will check him for H. pylori associated gastritis. He is okay with this plan. Orders: Orders Allergen, Food Profile 14 Today R19.6 - Halitosis CRP Today R19.6 - Halitosis Celiac Disease Profile Today R19.6 - Halitosis Erythrocyte Sed Rate Today R19.6 - Halitosis ANCA Today R19.6 - Halitosis Immunoglobulins G/A/M/E Today R19.6 - Halitosis Gastric Emptying Study Today R19.6 - Halitosis I have examined the patient and the H&P has been reviewed. There are no clinical changes since date of exam.
[2024-05-18 07:07] LABS: Bedside Glucose 114 mg/dL (74-106)
--- NOTE | 2024-05-18 07:25 | OP.EGD_ITS ---
Patient Name: Brent Kelly Procedure Date: 05/18/2024 6:59 AM Date of : 1950 Age: 74 Procedure: Upper GI endoscopy Indications: Heartburn Providers: Wilfrid Najera DO Referring MD: Wilfrid Najera DO Medicines: Monitored Anesthesia Care Patient Profile: This is a 74 year old male. Refer to note in patient chart for documentation of history and physical. Patient has symptoms of chronic dyspepsia and chronic heartburn. Complications: No immediate complications. Procedure: Pre-Anesthesia Assessment: - Prior to the procedure, a History and Physical was performed, and patient medications and allergies were reviewed. The risks and benefits of the procedure and the sedation options and risks were discussed with the patient. All questions were answered and informed consent was obtained. Patient identification and proposed procedure were verified by the physician in the pre-procedure area. Mental Status Examination: alert and oriented. Airway Examination: normal oropharyngeal airway and neck mobility. Prophylactic Antibiotics: The patient does not require prophylactic antibiotics. Prior Anticoagulants: The patient has taken no anticoagulant or antiplatelet agents. ASA Grade Assessment: III - A patient with severe systemic disease. After reviewing the risks and benefits, the patient was deemed in satisfactory condition to undergo the procedure. The anesthesia plan was to use monitored anesthesia care (MAC). Immediately prior to administration of medications, the patient was re-assessed for adequacy to receive sedatives. The heart rate, respiratory rate, oxygen saturations, blood pressure, adequacy of pulmonary ventilation, and response to care were monitored throughout the procedure. The physical status of the patient was re-assessed after the procedure. After obtaining informed consent, the endoscope was passed under direct vision. Throughout the procedure, the patient's blood pressure, pulse, and oxygen saturations were monitored continuously. The Endoscope was introduced through the mouth, and advanced to the second part of duodenum. The upper GI endoscopy was accomplished without difficulty. The patient tolerated the procedure well. Scope In: 7:13:51 AM Scope Out: 7:18:52 AM Total Procedure Duration Time 0 hours 5 minutes 1 second Findings: There were esophageal mucosal changes suspicious for short-segment Wills's esophagus present in the lower third of the esophagus. The maximum longitudinal extent of these mucosal changes was 2 cm in length. Mucosa was biopsied with a cold forceps for histology in a targeted manner at intervals of 1 cm in the lower third of the esophagus. One specimen bottle was sent to pathology. Verification of patient identification for the specimen was done. Estimated blood loss was minimal. A small hiatal hernia was present. No gross lesions were noted in the entire examined stomach. A single 5 mm pedunculated and sessile polyp with no bleeding was found in the duodenal bulb. Biopsies were taken with a cold forceps for histology. Verification of patient identification for the specimen was done. Estimated blood loss was minimal. Impression: - Esophageal mucosal changes suspicious for short-segment Wills's esophagus. Biopsied. - Small hiatal hernia. - No gross lesions in the entire stomach. - A single duodenal polyp. Biopsied. Recommendation: - Discharge patient to home. - Resume previous diet. - Continue present medications. - Await pathology results. Procedure Code(s): --- Professional --- 24675, Esophagogastroduodenoscopy, flexible, transoral; with biopsy, single or multiple CPT copyright 2021 [employer]. All rights reserved. The codes documented in this report are preliminary and upon it security engineer review may be revised to meet current compliance requirements. Wilfrid Najera DO 05/18/2024 7:25:29 AM This report has been signed electronically. Number of Addenda: 0 Note Initiated On: 05/18/2024 6:59 AM
--- NOTE | 2024-05-18 07:26 | OP.CCLET_ITS ---
05/18/2024 Jairon Caruso [address] [place] [address] Re : Upper GI endoscopy procedure for Brent Kelly Dear Dr. Caruso This procedure was performed on Saturday, May 18, 2024. My impressions and recommendations are as follows: Impressions : - Esophageal mucosal changes suspicious for short-segment Wills's esophagus. Biopsied. - Small hiatal hernia. - No gross lesions in the entire stomach. - A single duodenal polyp. Biopsied. Recommendations : - Discharge patient to home. - Resume previous diet. - Continue present medications. - Await pathology results. My findings are described in the full procedure note, which is enclosed. If I can be of further assistance, please feel free to contact me at . Sincerely, Wilfrid Najera, 05/18/2024 7:25:29 AM This report has been signed electronically.
--- NOTE | 2024-05-18 07:29 | PCM.POST.ANE ---
Anesthesia: Postop Eval I Current Vital Signs Temperature: 99.3 F Pulse Rate: 64 Blood Pressure: 111/62 Respiratory Rate: 18 Pulse Ox: 95 Assessment Airway patent: Yes Spontaneous unlabored respirations: Yes nausea: No Vomiting: No Anesthesia Complication: No Fluid Hydration Crystalloid volume administer (ml): 200 Total IV fluid infused: 200 Progress Note Anesthesia document: Postop Eval 1 completed: Yes
--- NOTE | 2024-05-18 08:09 | POSTOPAN2_ITS ---
Anesthesia Postop Eval I Sum Postop Eval Completion status Anesthesia document: Postop Eval 1 completed: Yes Anesthesia Postop Eval I Summary Anesthesia Postop Eval I Summary: Anesthesia Postop Eval I: Assessment Summary Airway patent Yes 05/18/24 07:29 PHARMACY CONSULTANT.CSIR Spontaneous unlabored Yes 05/18/24 07:29 PHARMACY CONSULTANT.CSIR respirations Mental status nausea No 05/18/24 07:29 PHARMACY CONSULTANT.CSIR Vomiting No 05/18/24 07:29 PHARMACY CONSULTANT.CSIR Anesthesia Postop Eval I: Fluid Summary Crystalloid volume administer 200 05/18/24 07:29 PHARMACY CONSULTANT.CSIR (ml) Colloids volume administered ( ml) Blood Product volume administered (ml) Total IV fluid infused 200 05/18/24 07:29 PHARMACY CONSULTANT.CSIR Anesthesia Postop Eval I: Summary Notes Anesthesia Complication No 05/18/24 07:29 PHARMACY CONSULTANT.CSIR Anesthesia Complication Comment: Post-operative progress note Anesthesia: Postop Eval II Evaluation Mental status: Awake and Calm Pain Level: 0 nausea: No Vomiting: No Complications Anesthesia Complication: No
--- NOTE | 2024-05-18 08:09 | PCM.POSTANE2 ---
Anesthesia Postop Eval I Sum Postop Eval Completion status Anesthesia document: Postop Eval 1 completed: Yes Anesthesia Postop Eval I Summary Anesthesia Postop Eval I Summary: Anesthesia Postop Eval I: Assessment Summary Airway patent Yes 05/18/24 07:29 DIRECTOR OF PATIENT FINANCIAL SERVICES.CSIR Spontaneous unlabored Yes 05/18/24 07:29 DIRECTOR OF PATIENT FINANCIAL SERVICES.CSIR respirations Mental status nausea No 05/18/24 07:29 DIRECTOR OF PATIENT FINANCIAL SERVICES.CSIR Vomiting No 05/18/24 07:29 DIRECTOR OF PATIENT FINANCIAL SERVICES.CSIR Anesthesia Postop Eval I: Fluid Summary Crystalloid volume administer 200 05/18/24 07:29 DIRECTOR OF PATIENT FINANCIAL SERVICES.CSIR (ml) Colloids volume administered ( ml) Blood Product volume administered (ml) Total IV fluid infused 200 05/18/24 07:29 DIRECTOR OF PATIENT FINANCIAL SERVICES.CSIR Anesthesia Postop Eval I: Summary Notes Anesthesia Complication No 05/18/24 07:29 DIRECTOR OF PATIENT FINANCIAL SERVICES.CSIR Anesthesia Complication Comment: Post-operative progress note Anesthesia: Postop Eval II Evaluation Mental status: Awake and Calm Pain Level: 0 nausea: No Vomiting: No Complications Anesthesia Complication: No
== END 2024-05-18 08:04 | disposition home or self-care (01) ==
LOC: EN 06:02 → AC 06:07
PROVIDERS: PCP Family Medicine; Referring Provider Family Medicine; Visit Provider Internal Medicine Gastroenterology
PROC: 0DJ08ZZ Inspection of Upper Intestinal Tract, Via Natural or Artificial Opening Endoscopic (ICD-10-PCS; CPT 43235; principal; 2024-05-18 06:55)
DX: R19.6 Halitosis (principal); K44.9 Diaphragmatic hernia without obstruction or gangrene; K31.7 Polyp of stomach and duodenum; K22.70 Barrett's esophagus without dysplasia
CPT/HCPCS: 43239; 82962; 88305; 88312; 88341; 88342; J7120; J2405

== ENCOUNTER → 2024-05-26 | Outpatient (CLI) | payer OTHER, SELFPAY ==
[2024-05-26 10:18] LABS: Absolute Lymphocyte Count 1.94 X10^3/uL (0.83-4.51); Absolute Neutrophil Count 4.3 X10^3/uL (2.0-7.7); Basophil# 0.06 X10^3/uL; Basophil% 0.8 % (0-1); Eosinophil# 0.31 X10^3/uL; Eosinophils% 4.1 % (0-5); Hematocrit 38.3 % (40-54); Hemoglobin 12.3 g/dL (13.0-16.5); Lymphocyte # 1.94 X10^3/ul (0.83-4.51); Lymphocyte % 25.6 % (19-41); Mean Corp Hgb Conc 32.1 g/dL (32-36); Mean Corpuscular Hgb 29.4 pg (27.0-32.0); Mean Corpuscular Volume 91.6 fL (80-94); Mean Platelet Vol. 10.1 fl (6.2-12.0); Monocyte# 0.92 X10^3/uL; Monocyte% 12.1 % (0-10); NRBC Flagged by Analyzer 0 % (0-5); Neutrophil % 56.6 % (47-70); Platelet Count 263 K/mm3 (150-450); RBC Distribution Width CV 13.6 % (11.6-14.6); RET-HE 32.5 pg (30-35); Red Blood Count 4.18 M/mm3 (4.6-6.2); Reticulocyte Count 1.74 % (0.5-1.5); White Blood Count 7.6 K/mm3 (4.4-11.0)
[2024-05-26 10:57] LABS: Ferritin 68 ng/mL (26-388); Iron 71 ug/dL (65-175); Iron Binding Capacity,Total 291 ug/dL (250-450); LDH 250 U/L (87-241)
[2024-05-27 04:08] LABS: Transferrin 227 mg/dL (177-329)
== END | disposition home or self-care (01) ==
LOC: LAB 09:25
PROVIDERS: PCP Family Medicine; Referring Provider Internal Medicine Gastroenterology; Visit Provider Internal Medicine Gastroenterology
DX: D50.9 Iron deficiency anemia, unspecified (principal)
CPT/HCPCS: 36415; 82728; 83540; 83550; 83615; 84466; 85025; 85045

== ENCOUNTER → 2024-06-05 | Outpatient (CLI) | payer OTHER, SELFPAY ==
--- NOTE | 2024-06-05 09:09 | NM_ITS ---
CLINICAL: 74-year-old male with history of halitosis. SEMI-SOLID PHASE 99m Tc SULFUR COLLOID GASTRIC EMPTYING STUDY COMPARISON: None available FINDINGS: The patient was administered 1.2 mCi of 99m Tc sulfur colloid mixed with oatmeal and consumed per os. Image acquisitions in the anterior-posterior projections were obtained for 60 minutes. There is prompt visualization of the stomach. There is no gastroesophageal reflux identified. The T ? raw data emptying was calculated to be 48.06 minutes, (Normal: 12-56 minutes). NM/Gastric Emptying Study IMPRESSION: 1. NORMAL 99m Tc sulfur colloid semi-solid phase (oatmeal) gastric emptying imaging examination. A. There is normal and preserved semi-solid phase gastric emptying compared to normal controls. (Kaylee et al, J Nucl Med Tech 38: 186, 2010). Electronically Signed: Waqas Reed DO at 10:48 EDT ,
== END | disposition home or self-care (01) ==
LOC: NM 09:09
PROVIDERS: PCP Family Medicine; Referring Provider Internal Medicine Gastroenterology; Visit Provider Internal Medicine Gastroenterology
DX: R19.6 Halitosis (principal)
CPT/HCPCS: 78264; A9541